=== PATIENT | male | born 1960 | race Caucasian/White ===

== ENCOUNTER → 2017-11-02 | Outpatient (CLI) | payer OTHER ==
[2017-11-02 14:23] LABS: ALT 39 U/L (21-72); AST 26 U/L (17-59); Albumin 3.9 g/dL (3.5-5.0); Alkaline Phosphatase 63 U/L (38-126); Anion Gap 10 mmol/L; Blood Urea Nitrogen 17 mg/dL (9-20); Calcium 9.2 mg/dL (8.4-10.2); Carbon Dioxide 29 mmol/L (22-30); Chloride 102 mmol/L (98-107); Cholesterol 167 mg/dL (<200); Glucose 141 mg/dL (74-99); HDL Cholesterol 39 mg/dL (40-60); LDL Cholesterol,Calculated 104 mg/dL (0-99); Potassium 4.2 mmol/L (3.5-5.1); Sodium 141 mmol/L (137-145); Total Bilirubin 0.4 mg/dL (0.2-1.3); Total Protein 7.1 g/dL (6.3-8.2); Triglycerides 122 mg/dL (<150)
== END | disposition home or self-care (01) ==
LOC: LABWHC1 12:50
PROVIDERS: ATTEND Internal Medicine Endocrinology, Diabetes & Metabolism
DX: E11.65 Type 2 diabetes mellitus with hyperglycemia (principal)
CPT/HCPCS: 36415; 80053; 80061; 82043; 82570

== ENCOUNTER → 2019-05-07 | Outpatient (CLI) | payer OTHER ==
[2019-05-08 00:33] LABS: African American GFR (CKD) 111.7 (60.0-200.0); Albumin 3.9 g/dL (3.80-4.90); Albumin/Globulin Ratio 1.44 (1.60-3.17); BUN/Creat Ratio 16.25 Ratio (12.00-20.00); Calcium 9.2 mg/dL (8.7-10.3); Chol/HDL Ratio 4.14; Globulin 2.7 g/dL (1.6-3.3); LDL Cholesterol,Calculated 66.8 mg/dL (0.0-131.0); Non-African American GFR(CKD) 96.4 (60.0-200.0); Total Bilirubin 0.6 mg/dL (0.2-1.2); Total Protein 6.6 g/dL (6.2-8.2); VLDL Calculation 21.2 mg/dL (5.00-40.00)
[2019-05-08 01:16] LABS: Hemoglobin A1C 10.9 % (4.0-6.0)
== END | disposition home or self-care (01) ==
LOC: LABWHC1 13:53
PROVIDERS: ATTEND Internal Medicine Endocrinology, Diabetes & Metabolism
DX: E11.65 Type 2 diabetes mellitus with hyperglycemia (principal)
CPT/HCPCS: 36415; 80053; 80061; 82043; 82570; 83036; 84443

== ENCOUNTER 2019-05-15 16:54 | Emergency (ER) | payer OTHER ==
[2019-05-15 17:49] VITALS: TEMP 98.9
--- NOTE | 2019-05-15 19:36 | US ---
EXAMINATION TYPE: US venous doppler duplex LE RT DATE OF EXAM: 05/15/2019 7:00 PM COMPARISON: NONE CLINICAL HISTORY: Right calf and thigh pain. Right calf and thigh pain x couple days. No hx of DVT. P atient does not take blood thinners. SIDE PERFORMED: Right TECHNIQUE: The lower extremity deep venous system is examined utilizing real time linear array sonog parisa with graded compression, doppler sonography and color-flow sonography. VESSELS IMAGED: External Iliac Vein (EIV) Common Femoral Vein Deep Femoral Vein Greater Saphenous Vein * Femoral Vein Popliteal Vein Small Saphenous Vein * Proximal Calf Veins (* superficial vessels) Right Leg: No evidence of DVT in veins imaged from prox calf veins to EIV. Scanned area of pain righ t medial calf. No obvious abnormalities seen at this time. Edema visualized right calf. IMPRESSION: No evidence of deep venous thrombosis in the right leg.
--- NOTE | 2019-05-15 20:10 | ED ---
General Adult HPI - General Chief complaint: Extremity Problem,Nontraumatic Stated complaint: sharp pain in leg Time Seen by Provider: 05/15/19 18:04 Source: patient Mode of arrival: wheelchair Limitations: no limitations - History of Present Illness Initial comments: 59-year-old male patient presents to the emergency department today for evaluation of pain to the right calf and thigh. Patient states a few days ago he had a really sharp pain to the left calf. Patient states he has had some soreness to the area since. States that today he developed some pain in his thigh. He is concerned he may have a blood clot. Denies any swelling to the leg. Denies any recent travel or long car rides. Denies any prolonged immobility. Denies history of DVT or recent diagnosis of cancer. Denies any chest pain, shortness of breath, or palpitations. Denies fever or chills per denies any known injury. Patient denies any recent rash, fever, chills, abdo maren pain, nausea, vomiting, diarrhea, constipation, back pain, numbness, tingling, dizziness, weakness, hematuria, dysuria, urinary urgency, urinary frequency, headache, visual changes, or any other complaints. - Related Data Home Medications Medication Instructions Recorded Confirmed Glimepiride [Amaryl] 2 mg PO DAILY 11/15/18 11/15/18 INSULIN LISPRO (humaLOG) [humaLOG] See Protocol SQ AC-BRKFST 11/15/18 11/15/18 Insulin Glargine [Lantus] 10 unit SQ HS 11/15/18 11/15/18 metFORMIN HCL ER [Glucophage Xr] 750 mg PO BID 11/15/18 11/15/18 Allergies Allergy/AdvReac Type Severity Reaction Status Date / Time No Known Allergies Allergy Verified 05/15/19 17:49 Review of Systems ROS Statement: Those systems with pertinent positive or pertinent negative responses have been documented in the HPI. ROS Other: All systems not noted in ROS Statement are negative. Past Medical History Past Medical History: Diabetes Mellitus, Hyperlipidemia, Hypertension History of Any Multi-Drug Resistant Organisms: None Reported Past Surgical History: No Surgical Hx Reported Past Anesthesia/Blood Transfusion Reactions: No Reported Reaction Past Psychological History: No Psychological Hx Reported Smoking Status: Never smoker Past Alcohol Use History: Unable to Obtain, Rare General Exam Limitations: no limitations General appearance: alert, in no apparent distress, other (Physical well- developed, well-nourished adult male patient in no acute distress. Vital signs upon presentation are temperature 98.9F, pulse 81, respirations 20, blood pressure 167/85, pulse ox 95% on room air.) Eye exam: Present: normal appearance, PERRL, EOMI. Absent: scleral icterus, conjunctival injection, periorbital swelling ENT exam: Present: normal exam, normal oropharynx, mucous membranes moist Cardiovascular Exam: Present: regular rate, normal rhythm, normal heart sounds. Absent: systolic murmur, diastolic murmur, rubs, gallop, clicks GI/Abdominal exam: Present: soft, normal bowel sounds. Absent: distended, tenderness, guarding, rebound, rigid Extremities exam: Present: normal inspection, full ROM, tenderness (Mild tenderness over the right medial calf.), normal capillary refill, other (Skin to the right lower extremity is pink, warm, dry. Cap refill less than 3 seconds. Pedal and posttibial pulses 2+ and equal bilaterally.). Absent: pedal edema, joint swelling, calf tenderness Neurological exam: Present: alert, oriented X3, CN II-XII intact Psychiatric exam: Present: normal affect, normal mood Skin exam: Present: warm, dry, intact, normal color. Absent: rash Course Vital Signs 05/15/19 05/15/19 17:46 21:00 Temperature 98.9 F Pulse Rate 81 72 Respiratory 20 18 Rate Blood Pressure 167/85 142/73 O2 Sat by Pulse 95 Oximetry Medical Decision Making - Medical Decision Making 59-year-old male patient presents to the emergency department today for evaluation of calf and thigh pain. Physical examination reveals some mild tenderness but no swelling or skin discoloration. No rash. Neurovascular status is intact. Ultrasound was obtained and shows no evidence for DVT or ot her abnormalities. He does state symptoms have been improved over the last couple of days. Patient will be discharged up with his primary care physician for recheck in 1-2 days. Return parameters were discussed in detail. He verbalizes understanding and agrees with this plan - Radiology Data Radiology results: report reviewed Ultrasound of the right lower extremity is obtained. Report reviewed in its entirety. Impression by Dr. Saldana shows no evidence of DVT in the veins image from the proximal calf veins to the ER IV. Scant area of pain right medial calf. No obvious have normality seen at this time. Edema visualized right calf. Disposition Clinical Impression: Leg pain Disposition: HOME SELF-CARE Condition: Good Instructions (If sedation given, give patient instructions): Leg Pain (ED) Additional Instructions: Take Tylenol Motrin for pain control. Follow up with her primary care physician for recheck in 12 days. Return to the emergency department immediately for any new, worsening, or concerning symptoms. Is patient prescribed a controlled substance at d/c from ED?: No Referrals: Nathanael Valentin MD [Primary Care Provider] - 1-2 days Time of Disposition: 20:10
[2019-05-15 21:25] VITALS: BP 142/73; PULSE 72; RESP 18
== END 2019-05-15 21:00 | disposition home or self-care (01) ==
LOC: EC 16:54
DX: M79.661 Pain in right lower leg (principal); M79.651 Pain in right thigh; E11.9 Type 2 diabetes mellitus without complications; Z79.4 Long term (current) use of insulin
CPT/HCPCS: 99283

== ENCOUNTER → 2019-10-24 | Outpatient (CLI) | payer OTHER ==
--- NOTE | 2019-10-24 16:35 | CONS ---
CONSULTATION DATE OF SERVICE: 10/24/2019 This patient is a 59-year-old gentleman who has been evaluated in the sleep center for possible obstructive sleep apnea-hypopnea syndrome. HISTORY OF PRESENT ILLNESS/SLEEP/WAKE EVALUATION: Patient's usual sleep schedule on weekdays is from 10:30 p.m. until 6:30 a.m. and on weekends from around 11:30 p.m. until 7:30 a.m. Sometimes he has problems with falling asleep. No TV in bedroom. He usually sleeps on the side position. He wakes up from sleep up to 4 times with nocturia and dry mouth. No history of hypnagogic hallucinations, sleep paralysis or cataplexy. Positive history of sleeptalking. In the morning the patient wakes up tired, has difficulties paying attention. White Sleepiness Scale is 7. PAST MEDICAL HISTORY: Past medical history is positive for hypertension and diabetes. PAST SURGICAL HISTORY: Colonoscopy. MEDICATIONS: Diovan, hydrochlorothiazide, metoprolol, metformin, amlodipine, glimepiride, isosorbide, several other medications. Patient does not remember the names. SOCIAL HISTORY: Alcohol consumption occasional. Presently does not smoke. REVIEW OF SYSTEMS: Multiple awakenings from sleep. Episodes of sleepiness during the day. PHYSICAL EXAMINATION: GENERAL: A pleasant gentleman without distress. VITAL SIGNS: Height 6 feet 0 inches, weight 341, body mass index 46.2, oxygen saturation at room air 96%. Blood pressure 123/71, HR 72. HEENT: PERRLA, EOMI. Evaluation of oropharynx showed tongue protrudes midline. Low position of soft palate. NECK: Supple. No JVD. Thyroid is not palpable. Wide neck; 20-1/4 inches in circumference. LUNGS: Clear to percussion and to auscultation. Good air exchange. No wheezing or rhonchi. HEART: S1, S2 regular. No murmurs, gallops or rubs. ABDOMEN: Obese. EXTREMITIES: No clubbing or cyanosis. 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 Cranial nerves 2 to 7 intact. There is no fasciculation or atrophy. noted. No focal deficits observed. IMPRESSION: 1. Snoring, multiple awakenings from sleep with dry mouth and nocturia, wide neck, low position of soft palate; obstructive sleep apnea-hypopnea syndrome. 2. Obesity in morbid range. 3. Hypertension. 4. Diabetes mellitus. PLAN: 1. Polysomnography for evaluation of patient's breathing during sleep. 2. CPAP/BiPAP titration if sleep study confirms obstructive sleep apnea-hypopnea syndrome. 3. Preferable position during sleep on the side. 4. No driving if patient feels any sleepiness. 5. I will see patient for follow up visit to explain results of testing and following plan. Thank you very much for referring this patient for consultation. Sincerely, Gabino Marc MD, PhD, FAASM Diplomat of [employer] Developer of [facility] [place] MMODL / IJN: [id number] /
== END | disposition home or self-care (01) ==
LOC: SLEEP 13:32
PROVIDERS: ATTEND Internal Medicine
DX: G47.33 Obstructive sleep apnea (adult) (pediatric) (principal); E66.01 Morbid (severe) obesity due to excess calories; I10 Essential (primary) hypertension; E11.9 Type 2 diabetes mellitus without complications; R35.1 Nocturia; R68.2 Dry mouth, unspecified; Z68.42 Body mass index [BMI] 45.0-49.9, adult; Z79.84 Long term (current) use of oral hypoglycemic drugs; Z79.899 Other long term (current) drug therapy
CPT/HCPCS: 99211

== ENCOUNTER → 2020-02-26 | Outpatient (CLI) | payer OTHER ==
[2020-02-26 20:11] LABS: African American GFR (CKD) 111.7 (60.0-200.0); Albumin 4.2 g/dL (3.80-4.90); Albumin/Globulin Ratio 1.4 (1.60-3.17); Anion Gap 8.7 mmol/L (4.00-12.00); BUN/Creat Ratio 17.5 Ratio (12.00-20.00); Calcium 9.7 mg/dL (8.7-10.3); Carbon Dioxide 28.3 mmol/L (21.6-31.8); Chol/HDL Ratio 3.81; LDL Cholesterol,Calculated 62.2 mg/dL (0.0-131.0); Non-African American GFR(CKD) 96.4 (60.0-200.0); Potassium 3.9 mmol/L (3.5-5.5); Total Bilirubin 0.5 mg/dL (0.3-1.2); Total Protein 7.2 g/dL (6.2-8.2); VLDL Calculation 24.8 mg/dL (5.00-40.00)
[2020-02-26 21:09] LABS: Hemoglobin A1C 10.7 % (4.0-6.0)
[2020-02-26 21:40] LABS: Urine Creatinine 169.2 mg/dL
== END | disposition home or self-care (01) ==
LOC: LABWHC1 11:48
PROVIDERS: ATTEND Internal Medicine Endocrinology, Diabetes & Metabolism
DX: E11.65 Type 2 diabetes mellitus with hyperglycemia (principal)
CPT/HCPCS: 36415; 80053; 80061; 82043; 82570; 83036; 84443

== ENCOUNTER → 2020-06-04 | Outpatient (CLI) | payer OTHER ==
--- NOTE | 2020-06-04 15:35 | XR ---
EXAMINATION TYPE: XR chest 2V DATE OF EXAM: 06/04/2020 COMPARISON: 01/25/2017 INDICATION: Dyspnea TECHNIQUE: Frontal and lateral views of the chest are obtained. FINDINGS: The heart size is normal. The pulmonary vasculature is normal. The lungs are clear. IMPRESSION: 1. No acute pulmonary process.
--- NOTE | 2020-06-04 16:53 | XR ---
EXAMINATION TYPE: XR thoracic spine complete DATE OF EXAM: 06/04/2020 COMPARISON: HISTORY: Pain, chronic TECHNIQUE: Three-view thoracic spine FINDINGS: There are 12 thoracic type vertebral bodies. Pedicles are intact. Spondylosis is present. D isc heights appear preserved. Vertebral body heights are preserved. There may be rudimentary ribs at T12. IMPRESSION: 1. Mild deep venous degenerative change. No acute osseous abnormality is evident.
--- NOTE | 2020-06-04 16:55 | XR ---
EXAMINATION TYPE: XR lumbosacral spine min 4V DATE OF EXAM: 06/04/2020 COMPARISON: None HISTORY: Pain TECHNIQUE: Five-view lumbar spine FINDINGS: There 5 lumbar-type vertebral bodies. Pedicles are intact. T12 ribs are rudimentary. No spo ndylolytic defects are evident. Mild facet changes are not excluded in the lower lumbar spine. Disc h eights are preserved. Vertebral body heights are preserved. IMPRESSION: 1. No acute osseous abnormality is evident. Early degenerative change may be present.
--- NOTE | 2020-06-04 16:57 | XR ---
EXAMINATION TYPE: XR cervical spine limited DATE OF EXAM: 06/04/2020 COMPARISON: None HISTORY: Dorsalgia TECHNIQUE: 3 views of the cervical spine FINDINGS: Prevertebral space is normal. Disc heights are preserved. Vertebral body heights are preser brock. Posterior spinal lamellar line is intact. Odontoid is unremarkable. IMPRESSION: 1. Normal cervical spine
--- NOTE | 2020-06-05 18:43 | ECHOF ---
Referral Reason:R06.09 Dyspnea MEASUREMENTS -------- HEIGHT: 185.4 cm WEIGHT: 152.0 kg BP: RVIDd: 3.6 cm (< 3.3) IVSd: 1.5 cm (0.6 - 1.1) LVIDd: 4.6 cm (3.9 - 5.3) LVPWd: 1.5 cm (0.6 - 1.1) IVSs: 2.0 cm LVIDs: 3.0 cm LVPWs: 1.6 cm LA Diam: 3.5 cm (2.7 - 3.8) Ao Diam: 4.1 cm (2.0 - 3.7) AV Cusp: 2.4 cm (1.5 - 2.6) MV EXCURSION: 13.694 mm (> 18.000) MV EF SLOPE: 128 mm/s (70 - 150) EPSS: 0.9 cm MV E Ismael: 0.65 m/s MV DecT: 359 ms MV A Ismael: 0.85 m/s MV E/A Ratio: 0.77 RAP: 5.00 mmHg RVSP: 14.58 mmHg FINDINGS -------- Sinus rhythm. This was a technically difficult study with suboptimal views. The left ventricular size is normal. There is moderate concentric left ventricular hypertrophy. O verall left ventricular systolic function is normal with, an EF between 55 - 60 %. The right ventricle is mildly enlarged. The left atrium is normal in size. The right atrial size is normal. 5.0mg of Lumason was utilized for enhancement of images There is mild aortic valve sclerosis. The mitral valve leaflets are mildly thickened. Trace tricuspid regurgitation present. The pulmonic valve was not well visualized. The aortic root is dilated measuring 4.1cm. IVC Not well visulized. There is no pericardial effusion. CONCLUSIONS -------- 1. This was a technically difficult study with suboptimal views. 2. There is moderate concentric left ventricular hypertrophy. 3. Overall left ventricular systolic function is normal with, an EF between 55 - 60 %. 4. The right ventricle is mildly enlarged. 5. 5.0mg of Lumason was utilized for enhancement of images 6. There is mild aortic valve sclerosis. 7. Trace tricuspid regurgitation present. 8. The aortic root is dilated measuring 4.1cm. ADULT PROBATION OFFICER: MAHAD Galvan
== END | disposition home or self-care (01) ==
LOC: RADXRMAIN 12:02
PROVIDERS: ATTEND Family Medicine
DX: I35.8 Other nonrheumatic aortic valve disorders (principal); I77.819 Aortic ectasia, unspecified site; I51.7 Cardiomegaly; M47.814 Spondylosis without myelopathy or radiculopathy, thoracic region; G89.29 Other chronic pain; M54.5 Low back pain; M54.2 Cervicalgia; R06.09 Other forms of dyspnea
CPT/HCPCS: 93306; 72072; 72040; 72110; 71046; Q9950

== ENCOUNTER 2020-07-10 14:55 | Observation (INO) | payer OTHER ==
--- NOTE | 2020-07-10 15:33 | ED ---
General Adult HPI - General Chief complaint: Shortness of Breath Stated complaint: Sent by PCP - Abn Labs Time Seen by Provider: 07/10/20 15:05 Source: patient Mode of arrival: ambulatory Limitations: no limitations - History of Present Illness Initial comments: Patient is a 60-year-old male with past medical history of diabetes, hypertension, hyperlipidemia who presents to the emergency department with chest pain or shortness of breath. Patient has had these symptoms for the past several months. Reports that he has been followed with Dr. Valentin in office. He had a stress test earlier this morning. Received a call on his way home stating that he had an abnormal stress test and needed to come to the emergency room for evaluation. Patient reports to exertional shortness of breath which has gotten progressively worse. Also reports a chest tightness and numbness tingling in his left arm. Currently asymptomatic at this time. Patient reports to a previous history of RI however patient did not find out about this until years later. Denies having stents. No lower extremity swelling at this time. No history of DVT or PE. No calf pain or swelling. Denies fevers, chills or cough. No other alleviating, precipitating or modifying factors - Related Data Home Medications Medication Instructions Recorded Confirmed Glimepiride [Amaryl] 2 mg PO DAILY 11/15/18 07/10/20 Aspirin EC [Ecotrin Low Dose] 81 mg PO DAILY 07/10/20 07/10/20 Atorvastatin [Lipitor] 20 mg PO HS 07/10/20 07/10/20 Empagliflozin [Jardiance] 25 mg PO DAILY 07/10/20 07/10/20 Insulin Glargine,Hum.rec.anlog 35 - 45 unit SQ HS 07/10/20 07/10/20 [Lantus Solostar] Insulin Lispro [humaLOG Kwikpen] See Protocol SQ AC-TID 07/10/20 07/10/20 Isosorbide Mononitrate ER [Imdur] 30 mg PO DAILY 07/10/20 07/10/20 Metoprolol Succinate [Toprol XL] 100 mg PO DAILY 07/10/20 07/10/20 Valsartan/Hydrochlorothiazide 1 tab PO DAILY 07/10/20 07/10/20 [Valsartan-Hctz 160-12.5 mg Tab] amLODIPine [Norvasc] 10 mg PO DAILY 07/10/20 07/10/20 metFORMIN HCL [Glucophage] 850 mg PO BID 07/10/20 07/10/20 Allergies Allergy/AdvReac Type Severity Reaction Status Date / Time No Known Allergies Allergy Verified 07/10/20 16:28 Review of Systems ROS Statement: Those systems with pertinent positive or pertinent negative responses have been documented in the HPI. ROS Other: All systems not noted in ROS Statement are negative. Past Medical History Past Medical History: Diabetes Mellitus, Hyperlipidemia, Hypertension History of Any Multi-Drug Resistant Organisms: None Reported Past Surgical History: No Surgical Hx Reported Past Anesthesia/Blood Transfusion Reactions: No Reported Reaction Past Psychological History: No Psychological Hx Reported Smoking Status: Never smoker Past Alcohol Use History: Rare Past Drug Use History: None Reported General Exam Limitations: no limitations General appearance: alert, in no apparent distress Head exam: Present: atraumatic, normocephalic, normal inspection Eye exam: Present: normal appearance, PERRL, EOMI. Absent: scleral icterus, conjunctival injection, periorbital swelling ENT exam: Present: normal exam, mucous membranes moist Neck exam: Present: normal inspection. Absent: tenderness, meningismus, lymphadenopathy Respiratory exam: Present: normal lung sounds bilaterally. Absent: respiratory distress, wheezes, rales, rhonchi, stridor Cardiovascular Exam: Present: regular rate, normal rhythm, normal heart sounds. Absent: systolic murmur, diastolic murmur, rubs, gallop, clicks GI/Abdominal exam: Present: soft, normal bowel sounds. Absent: distended, tenderness, guarding, rebound, rigid Extremities exam: Present: normal inspection, full ROM, normal capillary refill. Absent: tenderness, pedal edema, joint swelling, calf tenderness Back exam: Present: normal inspection Neurological exam: Present: alert, oriented X3, CN II-XII intact Psychiatric exam: Present: normal affect, normal mood Skin exam: Present: warm, dry, intact, normal color. Absent: rash Course Vital Signs 07/10/20 07/10/20 07/10/20 15:04 15:30 16:30 Temperature 98 F Pulse Rate 81 78 Respiratory 20 16 18 Rate Blood Pressure 119/76 129/64 126/74 O2 Sat by Pulse 97 96 96 Oximetry 07/10/20 07/10/20 17:00 17:30 Temperature Pulse Rate 71 78 Respiratory 18 18 Rate Blood Pressure 112/64 121/75 O2 Sat by Pulse 96 96 Oximetry EKG Findings - EKG Comments: EKG Findings:: EKG demonstrates sinus rhythm with ventricular rate of 80. VA interval 192. QRS 138. QTC of 475. Intraventricular conduction delay. Right bundle branch block with a left anterior fascicular block. No acute ST segment elevations. No old EKG for comparison Medical Decision Making - Medical Decision Making Upon arrival patient was placed into room 5. A thorough history and physical exam was performed. Patient hooked up to continuous pulse ox and cardiac monitoring. 12-lead EKG was performed. No old to compare to. Laboratory studies were conducted and the patient went for chest x-ray. Laboratory studies are reviewed and troponin is negative. Chest x-ray demonstrates no acute cardio pondering process. Results are discussed the patient. Because of this abnormal stress test I did recommend admission for which the patient did agree to. So with Duong from Dr. Valentin's office who agreed to admit the patient. I will place cardiology consultation. Troponins will be trended. Patient remained in stable condition awaiting a bed on the floor - Lab Data Result diagrams: 07/11/20 05:30 07/11/20 05:30 Lab Results 07/10/20 07/10/20 07/10/20 Range/Units 15:35 15:35 15:35 WBC 10.7 H (3.8-10.6) k/uL RBC 4.84 (4.30-5.90) m/uL Hgb 14.6 (13.0-17.5) gm/dL Hct 43.1 (39.0-53.0) % MCV 89.0 (80.0-100.0) fL MCH 30.2 (25.0-35.0) pg MCHC 33.9 (31.0-37.0) g/dL RDW 13.7 (11.5-15.5) % Plt Count 283 (150-450) k/uL MPV 6.5 Neutrophils % 72 % Lymphocytes % 20 % Monocytes % 4 % Eosinophils % 3 % Basophils % 1 % Neutrophils # 7.7 (1.3-7.7) k/uL Lymphocytes # 2.2 (1.0-4.8) k/uL Monocytes # 0.4 (0-1.0) k/uL Eosinophils # 0.3 (0-0.7) k/uL Basophils # 0.1 (0-0.2) k/uL PT 10.3 (9.0-12.0) sec INR 1.0 (<1.2) APTT 22.3 (22.0-30.0) sec Sodium 139 (137-145) mmol/L Potassium 3.8 (3.5-5.1) mmol/L Chloride 105 (98-107) mmol/L Carbon Dioxide 24 (22-30) mmol/L Anion Gap 10 mmol/L BUN 19 (9-20) mg/dL Creatinine 0.68 (0.66-1.25) mg/dL Est GFR (CKD-EPI)AfAm >90 (>60 ml/min/1.73 sqM) Est GFR (CKD-EPI)NonAf >90 (>60 ml/min/1.73 sqM) Glucose 209 H (74-99) mg/dL Calcium 9.3 (8.4-10.2) mg/dL Magnesium 1.8 (1.6-2.3) mg/dL Total Bilirubin 0.5 (0.2-1.3) mg/dL AST 34 (17-59) U/L ALT 36 (4-49) U/L Alkaline Phosphatase 67 (38-126) U/L Troponin I (0.000-0.034) ng/mL NT-Pro-B Natriuret Pep pg/mL Total Protein 7.5 (6.3-8.2) g/dL Albumin 4.1 (3.5-5.0) g/dL 07/10/20 07/10/20 Range/Units 15:35 15:35 WBC (3.8-10.6) k/uL RBC (4.30-5.90) m/uL Hgb (13.0-17.5) gm/dL Hct (39.0-53.0) % MCV (80.0-100.0) fL MCH (25.0-35.0) pg MCHC (31.0-37.0) g/dL RDW (11.5-15.5) % Plt Count (150-450) k/uL MPV Neutrophils % % Lymphocytes % % Monocytes % % Eosinophils % % Basophils % % Neutrophils # (1.3-7.7) k/uL Lymphocytes # (1.0-4.8) k/uL Monocytes # (0-1.0) k/uL Eosinophils # (0-0.7) k/uL Basophils # (0-0.2) k/uL PT (9.0-12.0) sec INR (<1.2) APTT (22.0-30.0) sec Sodium (137-145) mmol/L Potassium (3.5-5.1) mmol/L Chloride (98-107) mmol/L Carbon Dioxide (22-30) mmol/L Anion Gap mmol/L BUN (9-20) mg/dL Creatinine (0.66-1.25) mg/dL Est GFR (CKD-EPI)AfAm (>60 ml/min/1.73 sqM) Est GFR (CKD-EPI)NonAf (>60 ml/min/1.73 sqM) Glucose (74-99) mg/dL Calcium (8.4-10.2) mg/dL Magnesium (1.6-2.3) mg/dL Total Bilirubin (0.2-1.3) mg/dL AST (17-59) U/L ALT (4-49) U/L Alkaline Phosphatase (38-126) U/L Troponin I <0.012 (0.000-0.034) ng/mL NT-Pro-B Natriuret Pep 32 pg/mL Total Protein (6.3-8.2) g/dL Albumin (3.5-5.0) g/dL Disposition Clinical Impression: Chest pain, Exertional dyspnea, Abnormal stress ECG Disposition: ADMITTED IP TO THIS [facility] Condition: Stable Is patient prescribed a controlled substance at d/c from ED?: No Decision to Admit Reason: Admit from EC Decision Date: 07/10/20 Decision Time: 16:37
[2020-07-10 15:42] LABS: Basophils # (A) 0.1 k/uL (0-0.2); Basophils % (A) 1 %; Eosinophils # (A) 0.3 k/uL (0-0.7); Eosinophils % (A) 3 %; HCT 43.1 % (39.0-53.0); HGB 14.6 gm/dL (13.0-17.5); Lymphocytes # (A) 2.2 k/uL (1.0-4.8); Lymphocytes % (A) 20 %; MCH 30.2 pg (25.0-35.0); MCHC 33.9 g/dL (31.0-37.0); Mean Platelet Volume 6.5; Monocytes # (A) 0.4 k/uL (0-1.0); Monocytes % (A) 4 %; Neutrophils # (A) 7.7 k/uL (1.3-7.7); Neutrophils % (A) 72 %; Platelet Count 283 k/uL (150-450); RBC 4.84 m/uL (4.30-5.90); RDW 13.7 % (11.5-15.5); WBC 10.7 k/uL (3.8-10.6)
[2020-07-10 16:01] LABS: ALT 36 U/L (4-49); AST 34 U/L (17-59); African American GFR (CKD) >90 (>60 ml/min/1.73 sqM); Albumin 4.1 g/dL (3.5-5.0); Alkaline Phosphatase 67 U/L (38-126); Anion Gap 10 mmol/L; Blood Urea Nitrogen 19 mg/dL (9-20); Calcium 9.3 mg/dL (8.4-10.2); Carbon Dioxide 24 mmol/L (22-30); Chloride 105 mmol/L (98-107); Glucose 209 mg/dL (74-99); Magnesium 1.8 mg/dL (1.6-2.3); Non-African American GFR(CKD) >90 (>60 ml/min/1.73 sqM); Potassium 3.8 mmol/L (3.5-5.1); Sodium 139 mmol/L (137-145); Total Bilirubin 0.5 mg/dL (0.2-1.3); Total Protein 7.5 g/dL (6.3-8.2)
[2020-07-10 16:07] LABS: Partial Thromboplastin Time 22.3 sec (22.0-30.0); Prothrombin Time 10.3 sec (9.0-12.0)
--- NOTE | 2020-07-10 16:19 | XR ---
EXAMINATION TYPE: XR chest 2V DATE OF EXAM: 07/10/2020 COMPARISON: Chest x-ray 06/04/2020 HISTORY: Chest pain TECHNIQUE: Frontal and lateral views of the chest are obtained on 3 images. FINDINGS: There is no focal air space opacity, pleural effusion, or pneumothorax seen. The cardiac silhouette size is within normal limits. There are overlying leads. Patient is rotated. The osseous structures are intact. IMPRESSION: No acute cardiopulmonary process.
[2020-07-10] MEDS ORDERED: NALOXONE 0.4 MG/ML 1 ML VIAL IV PRN (16:37)
[2020-07-10] MEDS ORDERED: HEPARIN SODIUM,PORCINE 5,000 UNIT/ML 1 ML VIAL IV PRN (16:40)
[2020-07-10] MEDS ORDERED: HEPARIN SOD,PORK IN 0.45% NACL 25,000 UNIT in 0.45% NACL 1 250ML.BAG IV SCH (16:45)
[2020-07-10 17:21] LABS: Glucose,Whole Blood 180 mg/dL (75-99)
[2020-07-10 20:11] LABS: Glucose,Whole Blood 259 mg/dL (75-99)
[2020-07-10] MEDS ORDERED: INSULIN DETEMIR (LEVEMIR) 100 UNIT/ML SYR SQ SCH (21:00)
[2020-07-11 06:25] LABS: African American GFR (CKD) >90 (>60 ml/min/1.73 sqM); Anion Gap 9 mmol/L; Blood Urea Nitrogen 18 mg/dL (9-20); Calcium 8.8 mg/dL (8.4-10.2); Carbon Dioxide 23 mmol/L (22-30); Chloride 106 mmol/L (98-107); Glucose 197 mg/dL (74-99); Magnesium 1.9 mg/dL (1.6-2.3); Non-African American GFR(CKD) >90 (>60 ml/min/1.73 sqM); Potassium 3.8 mmol/L (3.5-5.1); Sodium 138 mmol/L (137-145)
[2020-07-11 06:32] LABS: INR 0.9 (<1.2); Partial Thromboplastin Time 26.3 sec (22.0-30.0); Prothrombin Time 10.1 sec (9.0-12.0)
[2020-07-11 07:19] LABS: Glucose,Whole Blood 183 mg/dL (75-99)
[2020-07-11 08:25] VITALS: TEMP 97.7
[2020-07-11] MEDS: INSULIN ASPART (NovoLOG) 100 UNIT/ML VIAL SQ SCH ×3 (08:26→18:14)
[2020-07-11 08:50] LABS: Basophils # (A) 0.05 X 10*3/uL (0.00-0.10); Basophils % (A) 0.6 %; Eosinophils # (A) 0.23 X 10*3/uL (0.04-0.35); Eosinophils % (A) 2.7 %; HCT 42.1 % (39.6-50.0); HGB 13.8 g/dL (13.0-17.0); Lymphocytes % (A) 30.7 %; MCH 30.2 pg (27.0-32.0); MCHC 32.8 g/dL (32.0-37.0); MCV 92.1 fL (80.0-97.0); Mean Platelet Volume 9.3 fL (9.5-12.2); Monocytes # (A) 0.63 X 10*3/uL (0.20-1.00); Monocytes % (A) 7.4 %; Neutrophils # (A) 4.89 X 10*3/uL (1.80-7.70); Neutrophils % (A) 57.7 %; Platelet Count 250 X 10*3/uL (140-440); RBC 4.57 X 10*6/uL (4.40-5.60); RDW 13.8 % (11.5-14.5); WBC 8.48 X 10*3/uL (4.50-10.00)
[2020-07-11] MEDS ORDERED: ASPIRIN 81 MG PO SCH (09:00)
[2020-07-11] MEDS ORDERED: hydroCHLOROthiazide 12.5 MG CAP PO SCH (09:00)
[2020-07-11] MEDS ORDERED: METOPROLOL SUCCINATE (ER) 100 MG TAB.ER.24H PO SCH (09:00)
[2020-07-11] MEDS ORDERED: amLODIPine 10 MG TAB PO SCH (09:00)
[2020-07-11] MEDS ORDERED: VALSARTAN 160 MG TAB PO SCH (09:00)
[2020-07-11] MEDS ORDERED: ISOSORBIDE MONONITRATE ER 30 MG TAB.ER.24H PO SCH (09:00)
[2020-07-11] MEDS ORDERED: ALPRAZolam 0.5 MG TAB PO PRN (10:05)
[2020-07-11] MEDS ORDERED: ASPIRIN 325 MG TAB PO STA (10:05)
[2020-07-11] MEDS ORDERED: SODIUM CHLORIDE 0.9% 1,000 ML in EMPTY BAG 1 BAG IV ONE (10:05)
[2020-07-11] MEDS ORDERED: ALPRAZolam 0.25 MG TAB PO PRN (10:05)
[2020-07-11] MEDS ORDERED: NITROGLYCERIN SL TABS 0.4 MG TAB SUBLINGUAL PRN (10:05)
[2020-07-11] MEDS ORDERED: ATORVASTATIN 80 MG TAB PO STA (10:05)
[2020-07-11 11:05] LABS: Glucose,Whole Blood 158 mg/dL (75-99)
--- NOTE | 2020-07-11 11:11 | P.CRDCN ---
History of Present Illness Consult date: 07/11/20 History of present illness: HISTORY OF PRESENT ILLNESS: This is a 60-year-old male with a past medical history significant for diabetes mellitus, hypertension, hyperlipidemia, obesity, and family history of cardiac disease. Patient does not follow with a medical records secretary. We have been asked to see the patient in consultation for abnormal stress test. Patient examined at the bedside. Patient states he has been having shortness of breath for the last couple months with intermittent left-sided chest pain. He saw his primary care physician, Dr. Valentin, who ordered a stress test. The patient underwent outpatient Lexiscan stress test on 07/10/2020. The patient reports he received a phone call from his primary care physician that his stress test was abnormal and he needed to come to the emergency room. At the time of examination this morning, the patient denies any chest pain or pressure. He denies any shortness of breath. EKG reveals sinus rhythm. Right bundle branch block. Left anterior fascicular block. Bifascicular block. Chest xray negative for acute process. Laboratory data: WBC 8.4, Hemoglobin 13.8, Platelet count 250, Sodium 138, Potassium 3.8, BUN 18, Creatinine 0.68, Troponin negative 3 Current home cardiac medications include Lipitor 20 mg daily, valsartan-hctz 61344.5 mg daily, metoprolol succinate 100 mg daily, Imdur 39 g daily, amlodipine 10 mg daily, aspirin 81 mg daily Most recent echocardiogram obtained in May 2020 reveals ejection fraction 55-60%. Lexiscan stress test performed on 07/10/2020 revealed acute ischemia anterior septal wall in LAD distribution mid to apical segment REVIEW OF SYSTEMS: At the time of my exam: CONSTITUTIONAL: Denies fever or chills. HEENT: Denies blurred vision, vision changes, or eye pain. Denies hemoptysis CARDIOVASCULAR: Denies chest pain. Denies orthopnea. Denies PND. Denies palpitations RESPIRATORY: Denies shortness of breath. GASTROINTESTINAL: Denies abdominal pain. Denies nausea or vomiting. HEMATOLOGIC: Denies bleeding disorders. GENITOURINARY: Denies any blood in urine. SKIN: Denies pruitis. Denies rash. PHYSICAL EXAM: VITAL SIGNS: Reviewed. GENERAL: Well-developed in no acute distress. HEENT: Head is normocephalic. Pupils are equal, round. Sclerae anicteric. Mucous membranes of the mouth are moist. Neck supple. No JVD or thyromegaly LUNGS: Respirations even and unlabored. Lungs essentially clear to auscultation bilaterally. HEART: Regular rate and rhythm. S1 and S2 heard. ABDOMEN: Soft. Nondistended. Nontender. EXTREMITIES: Normal range of motion. No clubbing or cyanosis. Peripheral pulses intact. No lower extremity edema NEUROLOGIC: Awake and alert. Oriented x 3. ASSESSMENT: Abnormal stress test revealing acute ischemia anterior septal wall in LAD d istribution mid to apical segment Shortness of breath and intermittent chest pain 2-3 months Hypertension Hyperlipidemia Diabetes mellitus Obesity: BMI 43.5 PLAN: Resume home cardiac medications Patient to undergo cardiac catheterization today with Dr. Lock Nurse practitioner note has been reviewed by physician. Signing provider agrees with the documented findings, assessment, and plan of care. Past Medical History Past Medical History: Diabetes Mellitus, Hyperlipidemia, Hypertension History of Any Multi-Drug Resistant Organisms: None Reported Past Surgical History: No Surgical Hx Reported Past Anesthesia/Blood Transfusion Reactions: No Reported Reaction Past Psychological History: No Psychological Hx Reported Smoking Status: Never smoker Past Alcohol Use History: Rare Past Drug Use History: None Reported Medications and Allergies Home Medications Medication Instructions Recorded Confirmed Type Glimepiride [Amaryl] 2 mg PO DAILY 11/15/18 07/10/20 History Aspirin EC [Ecotrin Low Dose] 81 mg PO DAILY 07/10/20 07/10/20 History Atorvastatin [Lipitor] 20 mg PO HS 07/10/20 07/10/20 History Empagliflozin [Jardiance] 25 mg PO DAILY 07/10/20 07/10/20 History Insulin Glargine,Hum.rec.anlog 35 - 45 unit SQ 07/10/20 07/10/20 History [Lantus Solostar] Insulin Lispro [humaLOG Kwikpen] See Protocol SQ AC-TID 07/10/20 07/10/20 History Isosorbide Mononitrate ER [Imdur] 30 mg PO DAILY 07/10/20 07/10/20 History Metoprolol Succinate [Toprol XL] 100 mg PO DAILY 07/10/20 07/10/20 History Valsartan/Hydrochlorothiazide 1 tab PO DAILY 07/10/20 07/10/20 History [Valsartan-Hctz 160-12.5 mg Tab] amLODIPine [Norvasc] 10 mg PO DAILY 07/10/20 07/10/20 History metFORMIN HCL [Glucophage] 850 mg PO BID 07/10/20 07/10/20 History Allergies Allergy/AdvReac Type Severity Reaction Status Date / Time No Known Allergies Allergy Verified 07/10/20 16:28 Physical Exam Vitals: Vital Signs Temp Pulse Pulse Resp BP BP Pulse Ox 07/11/20 08:25 97.7 F 67 18 137/83 98 07/11/20 02:00 97.6 F 67 15 120/75 94 L 07/10/20 20:01 97.8 F 70 17 130/78 97 07/10/20 17:54 98.4 F 50 L 18 165/87 97 07/10/20 17:30 78 18 121/75 96 07/10/20 17:00 71 18 112/64 96 07/10/20 16:30 18 126/74 96 07/10/20 15:30 78 16 129/64 96 07/10/20 15:04 98 F 81 20 119/76 97 Intake and Output 07/10/20 07/11/20 07/11/20 22:59 06:59 14:59 Intake Total 60.994 132.825 Balance 60.994 132.825 Intake: Intake, IV Titration 60.994 132.825 Amount Heparin Sod,Pork in 0.45% 60.994 132.825 NaCl 25,000 unit In 0.45 % NaCl 1 250ml.bag @ 6.68 UNITS/KG/HR 9.999 mls/hr IV .Q24H [facility] Rx#: [id number] Other: Voiding Method Toilet # Voids 1 2 Weight 149.685 kg Results 07/11/20 05:30 07/11/20 05:30 Cardiac Enzymes 07/10/20 07/10/20 07/10/20 Range/Units 15:35 15:35 18:06 AST 34 (17-59) U/L Troponin I <0.012 <0.012 (0.000-0.034) ng/mL 07/10/20 Range/Units 22:03 AST (17-59) U/L Troponin I <0.012 (0.000-0.034) ng/mL Coagulation 07/10/20 07/10/20 07/11/20 Range/Units 15:35 22:03 05:30 PT 10.3 10.1 (9.0-12.0) sec APTT 22.3 23.7 26.3 (22.0-30.0) sec CBC 07/10/20 07/11/20 Range/Units 15:35 05:30 WBC 10.7 H 8.48 (3.8-10.6) k/uL RBC 4.84 4.57 (4.30-5.90) m/uL Hgb 14.6 13.8 (13.0-17.5) gm/dL Hct 43.1 42.1 (39.0-53.0) % Plt Count 283 250 (150-450) k/uL Comprehensive Metabolic Panel 07/10/20 07/11/20 Range/Units 15:35 05:30 Sodium 139 138 (137-145) mmol/L Potassium 3.8 3.8 (3.5-5.1) mmol/L Chloride 105 106 (98-107) mmol/L Carbon Dioxide 24 23 (22-30) mmol/L BUN 19 18 (9-20) mg/dL Creatinine 0.68 0.68 (0.66-1.25) mg/dL Glucose 209 H 197 H (74-99) mg/dL Calcium 9.3 8.8 (8.4-10.2) mg/dL AST 34 (17-59) U/L ALT 36 (4-49) U/L Alkaline Phosphatase 67 (38-126) U/L Total Protein 7.5 (6.3-8.2) g/dL Albumin 4.1 (3.5-5.0) g/dL Current Medications Generic Name Dose Route Start Last Admin Trade Name Freq PRN Reason Stop Dose Admin Alprazolam 0.25 mg 07/11/20 10:05 Alprazolam 0.25 Mg Tab PO Q6HR PRN Mild Anxiety Alprazolam 0.5 mg 07/11/20 10:05 Alprazolam 0.5 Mg Tab PO Q6HR PRN Moderate Anxiety Amlodipine Besylate 10 mg 07/11/20 09:00 07/11/20 08:17 Amlodipine 10 Mg Tab PO 10 mg DAILY [facility] Administration Aspirin 81 mg 07/11/20 09:00 07/11/20 08:17 Aspirin 81 Mg PO 81 mg DAILY [facility] Administration Atorvastatin Calcium 20 mg 07/11/20 21:00 Atorvastatin 20 Mg Tab PO HS [facility] Heparin Sodium (Porcine) 0 unit 07/10/20 16:40 07/10/20 23:15 Heparin Sodium,Porcine 5,000 Unit/Ml 1 Ml Vial IV 4,000 unit PER PROTOCOL PRN Administration Low PTT Protocol Hydrochlorothiazide 12.5 mg 07/11/20 09:00 07/11/20 08:16 Hydrochlorothiazide 12.5 Mg Cap PO 12.5 mg DAILY [facility] Administration Heparin Sodium/Sodium Chloride 250 mls @ 9.999 mls/hr 07/10/20 16:45 07/11/20 08:20 25,000 unit/ Sodium Chloride IV 12.68 units/kg/hr .Q24H [facility] 18.98 mls/hr Titration Protocol 6.68 UNITS/KG/HR Sodium Chloride 1,000 ml/ IV 1,000 mls @ 149.685 mls/hr 07/11/20 10:05 Solution IV 07/11/20 16:45 .Q6H41M ONE 1 ML/KG/HR Heparin Sodium (Porcine) 10, 1,001 mls @ 999 mls/hr 07/12/20 07:00 000 unit/ Sodium Chloride IRRIGATION 07/12/20 23:00 ONCE PRN INTRA-OP Heparin Sodium (Porcine) 2,500 250.5 mls @ 250 mls/hr 07/12/20 07:00 unit/ Sodium Chloride IRRIGATION 07/12/20 23:00 ONCE PRN INTRA-OP Insulin Aspart 0 unit 07/11/20 07:30 07/11/20 08:26 Insulin Aspart (Novolog) 100 Unit/Ml Vial SQ Not Given ACHS [facility] Protocol Insulin Detemir 35 unit 07/10/20 21:00 07/10/20 20:39 Insulin Detemir (Levemir) 100 Unit/Ml Syr SQ 35 unit HS [facility] Administration Isosorbide Mononitrate 30 mg 07/11/20 09:00 07/11/20 08:16 Isosorbide Mononitrate Er 30 Mg Tab.Er.24h PO 30 mg DAILY [facility] Administration Metoprolol Succinate 100 mg 07/11/20 09:00 07/11/20 08:17 Metoprolol Succinate (Er) 100 Mg Tab.Er.24h PO 100 mg DAILY [facility] Administration Naloxone HCl 0.2 mg 07/10/20 16:37 Naloxone 0.4 Mg/Ml 1 Ml Vial IV Q2M PRN Opioid Reversal Nitroglycerin 0.4 mg 07/11/20 10:05 Nitroglycerin Sl Tabs 0.4 Mg Tab SUBLINGUAL Q5M PRN Chest Pain Empagliflozin [ 25 mg 07/11/20 09:00 07/11/20 09:05 Jardiance] 25 Mg PO Not Given Tablet DAILY [facility] Valsartan 160 mg 07/11/20 09:00 07/11/20 08:17 Valsartan 160 Mg Tab PO 160 mg DAILY [facility] Administration Intake and Output 07/10/20 07/11/20 07/11/20 22:59 06:59 14:59 Intake Total 60.994 132.825 Balance 60.994 132.825 Intake: Intake, IV Titration 60.994 132.825 Amount Heparin Sod,Pork in 0.45% 60.994 132.825 NaCl 25,000 unit In 0.45 % NaCl 1 250ml.bag @ 6.68 UNITS/KG/HR 9.999 mls/hr IV .Q24H [facility] Rx#: [id number] Other: Voiding Method Toilet # Voids 1 2 Weight 149.685 kg 07/11/20 05:30 07/11/20 05:30
[2020-07-11] MEDS ORDERED: fentaNYL (PF) 50 MCG/ML 2 ML AMP ONE (11:37)
[2020-07-11] MEDS ORDERED: LIDOCAINE 1% INJ 10MG/ML (20 ML MDV) ONE (11:38)
[2020-07-11] MEDS ORDERED: VERAPAMIL 2.5 MG/ML 2 ML AMP ONE (11:38)
[2020-07-11] MEDS ORDERED: MIDAZOLAM 2 MG/2 ML VIAL IV ONE (11:40)
[2020-07-11] MEDS ORDERED: fentaNYL (PF) 50 MCG/ML 2 ML AMP IV ONE (11:40)
[2020-07-11] MEDS ORDERED: LIDOCAINE 1% INJ 10MG/ML (20 ML MDV) SQ ONE (11:42)
[2020-07-11] MEDS ORDERED: HEPARIN SODIUM 1,000 UN/ML (10ML VL) ONE (11:43)
[2020-07-11] MEDS ORDERED: VERAPAMIL SYRINGE (5 MG/10 ML) INTRAARTER ONE (11:44)
[2020-07-11] MEDS ORDERED: HEPARIN SODIUM 1,000 UN/ML (10ML VL) IV ONE (11:45)
[2020-07-11] MEDS ORDERED: IV FLUID CONTINUATION 900 ML IV ONE (11:52)
[2020-07-11] MEDS ORDERED: IOPAMIDOL-370 125ML BTL INJ ONE (11:53)
[2020-07-11] MEDS ORDERED: RX INFO: IV CONTRAST WAS GIVEN 1 EACH MISC MISCELLANE PRN (11:55)
[2020-07-11] MEDS ORDERED: SODIUM CHLORIDE 0.9% 1,000 ML IV SCH (12:00)
--- NOTE | 2020-07-11 12:00 | P.CARDCATH ---
Date of Procedure: 07/11/20 Operative Findings: CARDIAC CATHETERIZATION PERFORMING PHYSICIAN: Ron Lock MD, RPVI PROCEDURE PERFORMED: 1. Selective right and left coronary angiogram 2. Left heart catheterization INDICATION: Chest discomfort in this 60-year-old gentleman with hypertension and dyslipidemia and abnormal myocardial perfusion imaging stress test COMPLICATION: None APPROACH: Right radial artery LEVEL OF SEDATION: Moderate with a sedation length of 12 minutes PROCEDURE DESCRIPTION: After obtaining an informed consent, the patient was brought to cardiac laborer beam house. Local anesthesia was performed using lidocaine subcutaneously. The right radial artery was cannulated using Seldinger technique, the guidewire passed easily, following that we advanced a 5-Argentine sheath dilator assembly, the wire and dilator were removed and sheath was flushed. Following that, 2 mg of verapamil along with 95339 unit heparin were given. Selective right and left coronary angiogram using a 6-Argentine JR4 and JL 3.5 catheters. Following that we did left heart catheterization using 6-Argentine pigtail catheter. The procedure was completed there was no complication. SELECTIVE CORONARY ANGIOGRAM: The right coronary artery: Is a large caliber vessel and a dominant vessel and appears to be angiographically normal. Distally bifurcates into PDA and PLV branches and both appeared to be angiographically normal Left main: Is angiographically normal. Bifurcates into left circumflex, and left anterior descending artery The left circumflex: Is a large caliber vessel and nondominant vessel. It does have mild disease only. Gives rises into the first and second obtuse marginal branches and both appeared to be angiographically normal. The left anterior descending artery: Is a large caliber vessel. The LAD has mild disease only. Gives rises into the first and second diagonal branches and both appeared to have mild disease only. HEMODYNAMICS: The LVEDP was about 10-12 mmHg without significant gradient across aortic valve CONCLUSION: Mild nonobstructive coronary artery disease POSTPROCEDURE MANAGEMENT: Medical treatment
--- NOTE | 2020-07-11 12:57 | P.HPIM ---
History of Present Illness H&P Date: 07/11/20 (37) Chief Complaint: Dyspnea on exertion, chest discomfort 60-year-old male was admitted to the hospital, due to exertional shortness of breath, intermittent chest discomfort, and abnormal stress test. Patient had extensive diagnostic workup in emergency department, no acute EKG changes, troponins was negative, and no acute changes on chest x-ray. EKG reveals sinus rhythm with the right bundle branch block, left anterior fascicular block. Patient evaluate this a.m. resting comfortably in bed, patient denies chest pain, denies shortness of breath, or associated symptoms. Review of Systems Cardiovascular: Reports dyspnea on exertion Past Medical History Past Medical History: Diabetes Mellitus, Hyperlipidemia, Hypertension History of Any Multi-Drug Resistant Organisms: None Reported Past Surgical History: No Surgical Hx Reported Past Anesthesia/Blood Transfusion Reactions: No Reported Reaction Past Psychological History: No Psychological Hx Reported Smoking Status: Never smoker Past Alcohol Use History: Rare Past Drug Use History: None Reported Medications and Allergies Home Medications and Allergies Comment(s): Medications and allergies reviewed Home Medications Medication Instructions Recorded Confirmed Type Glimepiride [Amaryl] 2 mg PO DAILY 11/15/18 07/10/20 History Aspirin EC [Ecotrin Low Dose] 81 mg PO DAILY 07/10/20 07/10/20 History Atorvastatin [Lipitor] 20 mg PO HS 07/10/20 07/10/20 History Empagliflozin [Jardiance] 25 mg PO DAILY 07/10/20 07/10/20 History Insulin Glargine,Hum.rec.anlog 35 - 45 unit SQ HS 07/10/20 07/10/20 History [Lantus Solostar] Insulin Lispro [humaLOG Kwikpen] See Protocol SQ AC-TID 07/10/20 07/10/20 History Isosorbide Mononitrate ER [Imdur] 30 mg PO DAILY 07/10/20 07/10/20 History Metoprolol Succinate [Toprol XL] 100 mg PO DAILY 07/10/20 07/10/20 History Valsartan/Hydrochlorothiazide 1 tab PO DAILY 07/10/20 07/10/20 History [Valsartan-Hctz 160-12.5 mg Tab] amLODIPine [Norvasc] 10 mg PO DAILY 07/10/20 07/10/20 History metFORMIN HCL [Glucophage] 850 mg PO BID 07/10/20 07/10/20 History Allergies Allergy/AdvReac Type Severity Reaction Status Date / Time No Known Allergies Allergy Verified 07/10/20 16:28 Physical Exam Vitals: Vital Signs Temp Pulse Pulse Resp BP BP Pulse Ox 07/11/20 08:25 97.7 F 67 18 137/83 98 07/11/20 08:00 18 07/11/20 02:00 97.6 F 67 15 120/75 94 L 07/10/20 20:01 97.8 F 70 17 130/78 97 07/10/20 17:54 98.4 F 50 L 18 165/87 97 07/10/20 17:30 78 18 121/75 96 07/10/20 17:00 71 18 112/64 96 07/10/20 16:30 18 126/74 96 07/10/20 15:30 78 16 129/64 96 07/10/20 15:04 98 F 81 20 119/76 97 Intake and Output 07/10/20 07/11/20 07/11/20 22:59 06:59 14:59 Intake Total 60.994 232.825 Balance 60.994 232.825 Intake: IV 100 Intake, IV Titration 60.994 132.825 Amount Heparin Sod,Pork in 0.45% 60.994 132.825 NaCl 25,000 unit In 0.45 % NaCl 1 250ml.bag @ 6.68 UNITS/KG/HR 9.999 mls/hr IV .Q24H [facility] Rx#: [id number] Other: Voiding Method Toilet Toilet # Voids 1 2 Weight 149.685 kg - Constitutional General appearance: obese - EENT Eyes: EOMI, PERRLA ENT: normal oropharynx Ears: bilateral: normal - Neck Neck: normal ROM Carotids: bilateral: upstroke normal Thyroid: bilateral: normal size - Respiratory Respiratory: bilateral: CTA - Cardiovascular Normal sinus rhythm pattern Heart rate: 78 Rhythm: regular Heart sounds: normal: S1, S2 radial pulse Peripheral Pulses: bilateral: Normal dorsalis pedis Peripheral Pulses: bilateral: Normal - Gastrointestinal General gastrointestinal: normal bowel sounds - Integumentary Integumentary: normal - Neurologic Neurologic: CNII-XII intact - Musculoskeletal Musculoskeletal: gait normal - Psychiatric Psychiatric: A&O x's 3, appropriate affect, intact judgment & insight Results CBC & Chem 7: 07/11/20 05:30 07/11/20 05:30 Labs: Abnormal Lab Results - Last 24 Hours (Table) 07/10/20 07/10/20 07/10/20 Range/Units 15:35 15:35 17:20 WBC 10.7 H (3.8-10.6) k/uL MPV (9.5-12.2) fL Immature Gran # (0.00-0.04) X 10*3/uL Glucose 209 H (74-99) mg/dL POC Glucose (mg/dL) 180 H (75-99) mg/dL 07/10/20 07/11/20 07/11/20 Range/Units 20:06 05:30 05:30 WBC (3.8-10.6) k/uL MPV 9.3 L (9.5-12.2) fL Immature Gran # 0.08 H (0.00-0.04) X 10*3/uL Glucose 197 H (74-99) mg/dL POC Glucose (mg/dL) 259 H (75-99) mg/dL 07/11/20 07/11/20 Range/Units 07:18 11:04 WBC (3.8-10.6) k/uL MPV (9.5-12.2) fL Immature Gran # (0.00-0.04) X 10*3/uL Glucose (74-99) mg/dL POC Glucose (mg/dL) 183 H 158 H (75-99) mg/dL Chest x-ray: report reviewed Thrombosis Risk Factor Assmnt - Choose All That Apply Other Risk Factors: No Each Risk Factor Represents 2 Points: Age 61-74 years Thrombosis Risk Factor Assessment Total Risk Factor Score: 2 Thrombosis Risk Factor Assessment Level: Low Risk Assessment and Plan Assessment: Abnormal stress test revealing acute ischemia to the interceptor wall in the LAD distribution to the apical segment exertional shortness of breath intermittent chest pain hypertension hyperlipidemia diabetes mellitus type II obesity with BMI 43.5 Plan: Abnormal stress tests with associated shortness of breath with exertion and intermittent chest pain-continue heparin drip for anticoagulation therapy, consult cardiology for possible cardiac catheterization, hypertension- continue home medications, IV hydralazine for blood pressures greater than 170/90 as needed hyperlipidemia continue statin therapy diabetes mellitus type two-continue oral medications with additional sliding scale continue to monitor vital signs and laboratory diagnostic testing continue medical management Time with Patient: Greater than 30
[2020-07-11] MEDS ORDERED: HYDROcodone/APAP 5-325MG 1 EACH TAB PO PRN (16:22)
[2020-07-11] MEDS ORDERED: ACETAMINOPHEN TAB 325 MG TAB PO PRN (17:02)
[2020-07-11 17:20] VITALS: BP 130/67; PULSE 67; RESP 18
[2020-07-11 17:31] LABS: Glucose,Whole Blood 211 mg/dL (75-99)
[2020-07-11] MEDS ORDERED: ATORVASTATIN 20 MG TAB PO SCH (21:00)
--- NOTE | 2020-07-11 22:48 | P.DS ---
Providers Date of admission: 07/10/20 16:37 Expected date of discharge: 07/11/20 Attending physician: Nathanael Valentin Consults: 07/10/20 16:38 Consult Physician Urgent Consulting Provider: [facility] Consult Reason/Comments: acute cp, abn stress test Do you want consulting provider notified?: Yes Primary care physician: Nathanael Valentin [facility] Course: The 60-year-old male with his medical history significant for diabetes hypertension hyperlipidemia obesity family history of cardiac disease was sent to the emergency department after receiving results of having an abnormal stress test he was sent by his primary care physician when he described having intermittent chest pain shortness of breath with exertion. He had extensive workup in emergency department and was admitted to the hospital for cardiac workup, his EKG revealed sinus rhythm with a right bundle branch block left anterior fasicular block, a heparin drip was initiated and continued, cardiology was consulted. He denied having any shortness of breath or chest pain throughout the night, Cardiology performed right and left coronary angiogram left heart catheterization,the catheterizationDid show a mild nonobstructive coronary artery disease no intervention needed and to continueOh with medical treatment. Cardiology cleared for discharge, he's in no acute distress and cleared to go home for discharge. Assessment: Normal stress test revealing ischemia to the inferior wall of the LAD with distribution to the apical segment Intermittent chest pain Exertional shortness of breath Hypertension Hyperlipidemia Diabetes mellitus type II Obesity with a BMI of 43.5 Pertinent Studies: EKG Procedures: Right and left coronary angiogram Left cardiac catheterization Patient Condition at Discharge: Stable Plan - Discharge Summary Discharge Rx Participant: No New Discharge Prescriptions: Continue Glimepiride [Amaryl] 2 mg PO DAILY Insulin Glargine,Hum.rec.anlog [Lantus Solostar] 35 - 45 unit SQ HS Valsartan/Hydrochlorothiazide [Valsartan-Hctz 160-12.5 mg Tab] 1 tab PO DAILY Metoprolol Succinate [Toprol XL] 100 mg PO DAILY Isosorbide Mononitrate ER [Imdur] 30 mg PO DAILY Insulin Lispro [humaLOG Kwikpen] See Protocol SQ AC-TID metFORMIN HCL [Glucophage] 850 mg PO BID amLODIPine [Norvasc] 10 mg PO DAILY Empagliflozin [Jardiance] 25 mg PO DAILY Atorvastatin [Lipitor] 20 mg PO HS Aspirin EC [Ecotrin Low Dose] 81 mg PO DAILY Discharge Medication List Glimepiride [Amaryl] 2 mg PO DAILY 11/15/18 [History] Aspirin EC [Ecotrin Low Dose] 81 mg PO DAILY 07/10/20 [History] Atorvastatin [Lipitor] 20 mg PO HS 07/10/20 [History] Empagliflozin [Jardiance] 25 mg PO DAILY 07/10/20 [History] Insulin Glargine,Hum.rec.anlog [Lantus Solostar] 35 - 45 unit SQ HS 07/10/20 [History] Insulin Lispro [humaLOG Kwikpen] See Protocol SQ AC-TID 07/10/20 [History] Isosorbide Mononitrate ER [Imdur] 30 mg PO DAILY 07/10/20 [History] Metoprolol Succinate [Toprol XL] 100 mg PO DAILY 07/10/20 [History] Valsartan/Hydrochlorothiazide [Valsartan-Hctz 160-12.5 mg Tab] 1 tab PO DAILY 07/10/20 [History] amLODIPine [Norvasc] 10 mg PO DAILY 07/10/20 [History] metFORMIN HCL [Glucophage] 850 mg PO BID 07/10/20 [History] Follow up Appointment(s)/Referral(s): Nathanael Valentin MD [Primary Care Provider] - 1-2 days Patient Instructions/Handouts: Left Heart Catheterization (DC), After Radial Heart Catheterization (GEN) Discharge Disposition: HOME SELF-CARE
[2020-07-12] MEDS ORDERED: HEPARIN SODIUM,PORCINE 10,000 UNIT in SODIUM CHLORIDE 0.9% 1,000 ML IRRIGATION PRN (07:00)
[2020-07-12] MEDS ORDERED: HEPARIN SODIUM,PORCINE 2,500 UNIT in SODIUM CHLORIDE 0.9% 250 ML IRRIGATION PRN (07:00)
== END 2020-07-11 18:52 | disposition home or self-care (01) ==
LOC: EC 14:55 → 6NMEDSUR 16:37
PROVIDERS: ADMIT Family Medicine; ATTEND Family Medicine
DX: I24.9 Acute ischemic heart disease, unspecified (principal); R94.39 Abnormal result of other cardiovascular function study; I45.2 Bifascicular block; R07.89 Other chest pain; R06.09 Other forms of dyspnea; E11.9 Type 2 diabetes mellitus without complications; E78.5 Hyperlipidemia, unspecified; I25.10 Atherosclerotic heart disease of native coronary artery without angina pectoris; I10 Essential (primary) hypertension; E66.9 Obesity, unspecified; Z68.41 Body mass index [BMI] 40.0-44.9, adult; Z79.82 Long term (current) use of aspirin; Z79.4 Long term (current) use of insulin; Z79.899 Other long term (current) drug therapy; I25.2 Old myocardial infarction; Z82.49 Family history of ischemic heart disease and other diseases of the circulatory system
CPT/HCPCS: 96376; 96366 ×2; 96365; 99285; 36415; 93005; 93458; 83880; 80053; 80048; 83735 ×2; 84484; 85025 ×2; 85610 ×2; 85730 ×2; 87635; 71046; 99152; G0378 ×2; C1769; C1894; J2250; J1644 ×3; J2001; J3010; Q9967

== ENCOUNTER → 2020-07-10 | Outpatient (CLI) | payer OTHER ==
[~2020-07-10] MED LIST: REGADENOSON 0.4 MG/5 ML SYRINGE IV ONE
--- NOTE | 2020-07-10 11:54 | NM ---
"EXAMINATION TYPE: NM stress lexiscan cardiolite DATE OF EXAM: 07/10/2020 COMPARISON: NONE HISTORY: Essential hypertension. History of diabetes, hypercholesteremia, and family history of heart attack. Symptoms of chest pain palpitations and difficulty breathing. TECHNIQUE: After the intravenous administration of 9.7 mCi Tc 99m Sestamibi - Cardiolite resting SPE CT images acquired 45 minutes post injection. The patient received 0.4mg Lexiscan, 25.0 mCi Tc 99m Sestamibi - Stress images obtained [address] injection FINDINGS: Review of stress and rest SPECT images demonstrates subtle area of diminished radiotracer uptake on s tress images versus rest images mid to apical level anteroseptal wall seen best on short axis images but also thought present on horizontal long axis images. Small area of acute ischemia cannot be exclu ded. Gated analysis shows satisfactory wall motion with an estimated left ventricular ejection fract ion of 57 %. IMPRESSION: Cannot exclude acute ischemia anteroseptal wall in the LAD distribution mid to apical seg ment. Correlate clinically to determine need for further investigation by direct catheter angiogram. A Yellow level critical message alert has been initiated for Nathanael Valentin MD via the [email or web address] 0 | Critical Results System on 07/10/2020 11:51 AM. This message alert has been sent to Nathanael Valentin MD via the preferences provided by the clinician for the receipt of Radiology Critical Findings. [facility] ID [id number]."
--- NOTE | 2020-07-10 15:33 | EST ---
EXERCISE STRESS AGE: 60 SEX: Male HT: 6'1" WT: 330 lbs. PROTOCOL: Lexiscan STAGE: N/A DURATION OF EXERCISE: 5 min HEART RATE REST: 67 BLOOD PRESSURE REST: 103/72 MAXIMUM HEART RATE ACHIEVED: 79 MAXIMUM BLOOD PRESSURE: 111/58 85% MPHR: 134 100% MPHR: 158 METS: N/A INDICATIONS: chest pain CLINICAL INFORMATION: STRESS DATA: Pretesting physical examination showed a heart rate of 67, pressure is 103/72 mmHg. Baseline EKG showed sinus mechanism. The patient was given 0.4 mg of Lexiscan over 15 seconds per protocol. Max heart rate was 79 beats per minute and maximum pressure was 111/58 mmHg. Clinically, the patient did not have any symptoms of chest pain or chest discomfort and the EKG did not show any significant ST or T-wave abnormalities concerning for ischemia. CONCLUSION: 1. Nondiagnostic electrocardiogram stress testing in response to Lexiscan. 2. Please follow up on the Cardiolite portion. MMODL / IJN: [id number] /
== END ==
LOC: RADNMMAIN 07:51
PROVIDERS: ATTEND Family Medicine
DX: R07.9 Chest pain, unspecified (principal); E78.00 Pure hypercholesterolemia, unspecified; I10 Essential (primary) hypertension; E11.9 Type 2 diabetes mellitus without complications; Z82.49 Family history of ischemic heart disease and other diseases of the circulatory system
CPT/HCPCS: 93017; 78452; A9500; J2785

== ENCOUNTER → 2021-12-21 | Outpatient (CLI) | payer MEDICARE ==
[2021-12-21 19:21] LABS: ALT 32 U/L (10-49); AST 28 U/L (14-35); African American GFR (CKD) 110.2 (60.0-200.0); Albumin 4.2 g/dL (3.8-4.9); Albumin/Globulin Ratio 1.24 (1.60-3.17); Alkaline Phosphatase 73 U/L (41-126); Blood Urea Nitrogen 14.4 mg/dL (9.0-27.0); Calcium 9.8 mg/dL (8.7-10.3); Carbon Dioxide 28.7 mmol/L (20.0-27.5); Chloride 99 mmol/L (96-109); Chol/HDL Ratio 4.45 Ratio; Globulin 3.4 g/dL (1.6-3.3); Glucose 173 mg/dL (70-110); LDL Cholesterol,Calculated 97.9 mg/dL (0.0-131.0); Non-African American GFR(CKD) 95.1 (60.0-200.0); Potassium 4.3 mmol/L (3.5-5.5); Sodium 139 mmol/L (135-145); Total Protein 7.6 g/dL (6.2-8.2)
[2021-12-21 23:40] LABS: Urine Creatinine 41.8 mg/dL (39.0-259.0)
== END | disposition home or self-care (01) ==
LOC: LABWHC1 10:54
PROVIDERS: ATTEND Internal Medicine Endocrinology, Diabetes & Metabolism
DX: E11.65 Type 2 diabetes mellitus with hyperglycemia (principal)
CPT/HCPCS: 36415; 80053; 80061; 82043; 82570; 83036; 84443

== ENCOUNTER → 2022-05-13 | Outpatient (CLI) | payer OTHER ==
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
== END | disposition home or self-care (01) ==
LOC: RADMRIMAIN 15:11
PROVIDERS: ATTEND Family Medicine
DX: I67.82 Cerebral ischemia (principal); G31.9 Degenerative disease of nervous system, unspecified; M47.22 Other spondylosis with radiculopathy, cervical region; M41.82 Other forms of scoliosis, cervical region; M50.123 Cervical disc disorder at C6-C7 level with radiculopathy; M99.71 Connective tissue and disc stenosis of intervertebral foramina of cervical region
CPT/HCPCS: 70551; 72141

== ENCOUNTER → 2022-06-01 | Outpatient (CLI) | payer OTHER | END | disposition home or self-care (01) | LOC: LABWHC1 13:26 | PROVIDERS: ATTEND Surgery Plastic and Reconstructive Surgery | DX: Z01.89 Encounter for other specified special examinations (principal); I45.2 Bifascicular block; I49.8 Other specified cardiac arrhythmias; R94.31 Abnormal electrocardiogram [ECG] [EKG] | CPT/HCPCS: 36415; 93005 ==

== ENCOUNTER → 2022-09-02 | Outpatient (CLI) | payer OTHER ==
[2022-09-02 11:48] LABS: ALT 22 U/L (4-49); AST 21 U/L (17-59); African American GFR (CKD) >90 (>60 ml/min/1.73 sqM); Albumin 4.1 g/dL (3.5-5.0); Albumin/Globulin Ratio 1.2; Alkaline Phosphatase 67 U/L (38-126); Anion Gap 13 mmol/L; Blood Urea Nitrogen 21 mg/dL (9-20); Calcium 8.9 mg/dL (8.4-10.2); Carbon Dioxide 26 mmol/L (22-30); Chloride 102 mmol/L (98-107); Globulin 3.3 g/dL; Glucose 117 mg/dL (74-99); Non-African American GFR(CKD) >90 (>60 ml/min/1.73 sqM); Sodium 141 mmol/L (137-145); Total Bilirubin 0.5 mg/dL (0.2-1.3); Total Protein 7.4 g/dL (6.3-8.2)
[2022-09-02 21:04] LABS: Chol/HDL Ratio 3.08 Ratio; LDL Cholesterol,Calculated 62.8 mg/dL (0.0-131.0)
[2022-09-02 22:18] LABS: Urine Creatinine 95.6 mg/dL (39.0-259.0)
== END | disposition home or self-care (01) ==
LOC: LABWHC1 09:32
PROVIDERS: ATTEND Internal Medicine Endocrinology, Diabetes & Metabolism
DX: E11.65 Type 2 diabetes mellitus with hyperglycemia (principal)
CPT/HCPCS: 36415; 80053; 80061; 82043; 82570; 83036; 84443

== ENCOUNTER 2023-04-07 10:28 | Inpatient (IN) | payer OTHER ==
[~2023-04-07 10:28] MED LIST changes: +ACETAMINOPHEN TAB 500 MG TAB PO PRN; +HYDROmorphone 0.5 MG/0.5 ML SYRINGE IVP PRN; +ONDANSETRON 4 MG/2 ML VIAL IVP ONE; +ONDANSETRON 4 MG/2 ML VIAL IVP PRN; -REGADENOSON 0.4 MG/5 ML SYRINGE IV ONE; +ceFAZolin 3 GM in SODIUM CHLORIDE 0.9% 100 ML IVPB PRN
[2023-04-07] MEDS: LACTATED RINGERS 1,000 ML IV SCH (11:32)
[2023-04-07] MEDS ORDERED: DEXAMETHASONE SOD PHOSPHATE 4 MG/ML 1 ML VIAL IVP ONE (11:33)
[2023-04-07] MEDS: HEPARIN SODIUM,PORCINE/PF 5,000 UNIT/0.5 ML SYRINGE SQ PRN ×2 (11:33→12:24)
[2023-04-07] MEDS ORDERED: ACETAMINOPHEN TAB 500 MG TAB ONE (11:47)
[2023-04-07] MEDS ORDERED: HEPARIN SODIUM,PORCINE/PF 5,000 UNIT/0.5 ML SYRINGE SQ ONE (11:47)
[2023-04-07 11:58] LABS: Glucose,Whole Blood 82 mg/dL (70-110)
[2023-04-07] MEDS ORDERED: MIDAZOLAM 2 MG/2 ML VIAL IVP ONE (12:09)
[2023-04-07] MEDS ORDERED: fentaNYL (PF) 50 MCG/1 ML VIAL IVP ONE (12:09)
[2023-04-07] MEDS ORDERED: TAMSULOSIN 0.4 MG CAP.ER.24H PO STA (12:27)
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
[2023-04-07 12:35] LABS: Basophils % (A) 0 %; Eosinophils # (A) 0.3 k/uL (0-0.7); Eosinophils % (A) 4 %; HCT 41.5 % (39.0-53.0); HGB 13.8 gm/dL (13.0-17.5); Lymphocytes # (A) 1.7 k/uL (1.0-4.8); Lymphocytes % (A) 24 %; MCH 30.7 pg (25.0-35.0); MCHC 33.3 g/dL (31.0-37.0); MCV 92.5 fL (80.0-100.0); Mean Platelet Volume 7.7; Monocytes # (A) 0.4 k/uL (0-1.0); Monocytes % (A) 5 %; Neutrophils # (A) 4.5 k/uL (1.3-7.7); Neutrophils % (A) 64 %; Platelet Count 257 k/uL (150-450); RBC 4.49 m/uL (4.30-5.90); RDW 13.9 % (11.5-15.5); WBC 7.1 k/uL (3.8-10.6)
[2023-04-07 12:41] LABS: Potassium 4.7 mmol/L (3.5-5.1)
[2023-04-07] MEDS ORDERED: fentaNYL (PF) 50 MCG/ML 2 ML AMP ONE (13:05)
[2023-04-07] MEDS ORDERED: PROPOFOL 10 MG/ML 20 ML VIAL IV ONE (13:05)
[2023-04-07] MEDS ORDERED: GLYCOPYRROLATE 0.2 MG/ML 2 ML VIAL ONE (13:05)
[2023-04-07] MEDS ORDERED: KETOROLAC 15 MG/ML 1 ML VIAL ONE (13:05)
[2023-04-07] MEDS ORDERED: NEOSTIGMINE 1 MG/ML 10 ML VIAL ONE (13:05)
[2023-04-07] MEDS ORDERED: ROPIVACAINE 5 MG/ML 30 ML VIAL ONE (13:05)
[2023-04-07] MEDS ORDERED: HYDROmorphone (PF) 1 MG/ML ONE (13:05)
[2023-04-07] MEDS ORDERED: LIDOCAINE 1% INJ 10MG/ML (20 ML MDV) ONE (13:05)
[2023-04-07] MEDS ORDERED: ROCURONIUM 10 MG/ML (5 ML VIAL) IV ONE (13:05)
[2023-04-07] MEDS ORDERED: MIDAZOLAM 2 MG/2 ML VIAL ONE (13:05)
[2023-04-07] MEDS ORDERED: SUCCINYLCHOLINE CHLORIDE 200 MG/10 ML VIAL IV ONE (13:05)
[2023-04-07] MEDS ORDERED: PHENYLEPHRINE-0.9% NACL SYG 1,000 MCG/10 ML SYRINGE ONE (13:05)
--- NOTE | 2023-04-07 13:05 | P.ANPRN ---
Procedure Note - Anesthesia - Nerve Block Performed Bilateral Erector Spinae Single Time Out Performed: Yes (1208) Date of Procedure: 04/07/23 Procedure Start Time: 12:09 Procedure Stop Time: 12:14 Location of Patient: PreOp Indication: Acute Post-Operative Pain, Requested by Surgeon Specifically requested for management of pain by : Sandrita Chapa Sedation Type: Sedate with meaningful contact maintained Preparation: Sterile Prep Position: Prone Catheter: None Needle Types: Pajunk Needle Gauge: 21 (x2) Ultrasound used to visualize needle placement: Yes Ultrasound used to observe medication spread: Yes Injectate: 0.5% Ropivacaine (see comment for volume) (20cc each side) Blood Aspirated: No Pain Paresthesia on Injection Noted: No Resistance on Injection: Normal Image Stored and Saved: Yes Events: Uneventful and Well Tolerated
[2023-04-07] MEDS ORDERED: BUPIVACAINE (PF) 0.25% 10 ML VIAL SQ ONE (13:45)
[2023-04-07] MEDS ORDERED: LACTATED RINGERS 1,000 ML IV ONE (14:39)
[2023-04-07] MEDS ORDERED: TAMSULOSIN 0.4 MG CAP.ER.24H PO ONE (16:46)
[2023-04-07] MEDS ORDERED: HYDROcodone/APAP 5-325MG 1 EACH TAB ONE (16:59)
[2023-04-07] MEDS ORDERED: HYDROcodone/APAP 5-325MG 1 EACH TAB PO ONE (17:00)
[2023-04-07] MEDS ORDERED: HYDROmorphone 1 MG/ML 1 ML SYRINGE IVP PRN (18:05)
[2023-04-07] MEDS ORDERED: NALOXONE 0.4 MG/ML 1 ML VIAL IV PRN (18:05)
[2023-04-07] MEDS ORDERED: HYDROcodone/APAP 5-325MG 1 EACH TAB PO PRN (18:05)
[2023-04-07] MEDS ORDERED: DEXTROSE 50% SYRINGE 50 ML IVP PRN ×2 (18:09)
[2023-04-07] MEDS ORDERED: diphenhydrAMINE 50 MG/ML 1 ML VIAL IVP PRN (18:09)
[2023-04-07] MEDS ORDERED: MAGNESIUM HYDROXIDE 2,400 MG/30 ML CUP PO PRN (18:09)
--- NOTE | 2023-04-07 18:09 | P.PN ---
Progress Note - Text Progress Note Date: 04/07/23 Patient has multiple comorbidities including morbid obesity, uncontrolled diabetes type 2, hypertensive heart disease with congestive heart failure. Patient reports intractable incisional pain. Recommend observation status anticipated hospitalization 48-72 hours.
[2023-04-07 18:11] LABS: Glucose,Whole Blood 158 mg/dL (70-110)
[2023-04-07] MEDS ORDERED: HYDROmorphone PCA 10 MG/50 ML BAG IV SCH (19:00)
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
[2023-04-07 20:45] LABS: Glucose,Whole Blood 184 mg/dL (70-110)
[2023-04-07] MEDS: INSULIN ASPART (NovoLOG) 100 UNIT/ML VIAL SQ SCH (21:16)
[2023-04-07] MEDS: metFORMIN 850 MG TAB PO SCH (21:16)
[2023-04-07] MEDS: DOCUSATE 100 MG CAP PO SCH (21:16)
[2023-04-07] MEDS: HEPARIN SODIUM,PORCINE 5,000 UNIT/ML 1 ML VIAL SQ SCH (21:16)
[2023-04-07] MEDS ORDERED: NON FORMULARY DRUG (Dulaglutide [Trulicity] 1.5 MG/0.5 ML Each) SQ SCH (22:00)
[2023-04-08] MEDS: LACTATED RINGERS 1,000 ML IV SCH (05:41)
[2023-04-08] MEDS: INSULIN ASPART (NovoLOG) 100 UNIT/ML VIAL SQ SCH ×2 (06:28→13:39)
[2023-04-08 06:29] LABS: Glucose,Whole Blood 136 mg/dL (70-110)
[2023-04-08] MEDS ORDERED: PIOGLITAZONE 45 MG TAB PO SCH (09:00)
[2023-04-08] MEDS ORDERED: DAPAGLIFLOZIN PROPANEDIOL 10 MG TABLET PO SCH (09:00)
[2023-04-08] MEDS ORDERED: VALSARTAN 160 MG TAB PO SCH (09:00)
[2023-04-08] MEDS ORDERED: GLIMEPIRIDE 4 MG TAB PO SCH (09:00)
[2023-04-08] MEDS ORDERED: hydroCHLOROthiazide 12.5 MG CAP PO SCH (09:00)
[2023-04-08] MEDS ORDERED: LACTULOSE 20 GM/30 ML CUP PO SCH (09:00)
[2023-04-08] MEDS ORDERED: amLODIPine 10 MG TAB PO SCH (09:00)
[2023-04-08] MEDS ORDERED: ISOSORBIDE MONONITRATE ER 30 MG TAB.ER.24H PO SCH (09:00)
[2023-04-08] MEDS ORDERED: METOPROLOL SUCCINATE (ER) 25 MG TAB.ER.24H PO SCH (09:00)
[2023-04-08] MEDS ORDERED: ONDANSETRON 4 MG/2 ML VIAL IVP PRN (09:43)
[2023-04-08] MEDS: DOCUSATE 100 MG CAP PO SCH (10:00)
[2023-04-08] MEDS: metFORMIN 850 MG TAB PO SCH (10:00)
[2023-04-08] MEDS: HEPARIN SODIUM,PORCINE 5,000 UNIT/ML 1 ML VIAL SQ SCH (10:00)
[2023-04-08 10:50] VITALS: BP 129/75; PULSE 74; RESP 16; TEMP 97.4
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
[2023-04-08 12:28] LABS: Glucose,Whole Blood 181 mg/dL (70-110)
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
== END 2023-04-08 17:07 | disposition home or self-care (01) | DRG 353 ==
LOC: OR 10:28 → 6NMEDSUR 14:37 → OR 18:05
PROVIDERS: ADMIT Surgery Plastic and Reconstructive Surgery; ATTEND Surgery Plastic and Reconstructive Surgery
PROC: 8E0W4CZ Robotic Assisted Procedure of Trunk Region, Percutaneous Endoscopic Approach (ICD-10-PCS; 2023-04-07)
PROC: 3E0T3BZ Introduction of Anesthetic Agent into Peripheral Nerves and Plexi, Percutaneous Approach (ICD-10-PCS; 2023-04-07)
PROC: 0WUF4JZ Supplement Abdominal Wall with Synthetic Substitute, Percutaneous Endoscopic Approach (ICD-10-PCS; principal; 2023-04-07 12:15)
DX: K43.6 Other and unspecified ventral hernia with obstruction, without gangrene (principal); K56.2 Volvulus; Z68.42 Body mass index [BMI] 45.0-49.9, adult; I11.0 Hypertensive heart disease with heart failure; I50.9 Heart failure, unspecified; E66.01 Morbid (severe) obesity due to excess calories; E11.65 Type 2 diabetes mellitus with hyperglycemia; E78.5 Hyperlipidemia, unspecified; I25.10 Atherosclerotic heart disease of native coronary artery without angina pectoris; K42.9 Umbilical hernia without obstruction or gangrene; M54.9 Dorsalgia, unspecified; M54.2 Cervicalgia; V89.2XXA Person injured in unspecified motor-vehicle accident, traffic, initial encounter; Y92.410 Unspecified street and highway as the place of occurrence of the external cause; Z79.85 Long-term (current) use of injectable non-insulin antidiabetic drugs; Z79.82 Long term (current) use of aspirin; Z79.899 Other long term (current) drug therapy; Z79.84 Long term (current) use of oral hypoglycemic drugs
CPT/HCPCS: 64999; 80051; 83036; 85025

== ENCOUNTER 2023-06-23 09:53 | Observation (INO) | payer MEDICARE ==
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
[2023-06-23 11:12] LABS: Basophils % (A) 0 %; Eosinophils # (A) 0.2 k/uL (0-0.7); Eosinophils % (A) 3 %; HCT 42.5 % (39.0-53.0); Lymphocytes # (A) 1.1 k/uL (1.0-4.8); Lymphocytes % (A) 14 %; MCH 30.5 pg (25.0-35.0); MCV 92.6 fL (80.0-100.0); Mean Platelet Volume 7.7; Monocytes # (A) 0.4 k/uL (0-1.0); Monocytes % (A) 5 %; Neutrophils # (A) 5.9 k/uL (1.3-7.7); Neutrophils % (A) 77 %; Platelet Count 207 k/uL (150-450); RDW 14.4 % (11.5-15.5); WBC 7.7 k/uL (3.8-10.6)
[2023-06-23 11:35] LABS: ALT 16 U/L (4-49); AST 23 U/L (17-59); African American GFR (CKD) >90 (>60 ml/min/1.73 sqM); Albumin 3.3 g/dL (3.5-5.0); Alkaline Phosphatase 55 U/L (38-126); Anion Gap 10 mmol/L; Blood Urea Nitrogen 16 mg/dL (9-20); Calcium 8.8 mg/dL (8.4-10.2); Carbon Dioxide 21 mmol/L (22-30); Chloride 109 mmol/L (98-107); Glucose 111 mg/dL (74-99); Magnesium 1.7 mg/dL (1.6-2.3); Non-African American GFR(CKD) >90 (>60 ml/min/1.73 sqM); Prothrombin Time 10.8 sec (10.0-12.5); Sodium 140 mmol/L (137-145); Total Bilirubin 0.6 mg/dL (0.2-1.3); Total Protein 6.3 g/dL (6.3-8.2)
[2023-06-23 11:51] LABS: Potassium 4.5 mmol/L (3.5-5.1)
[2023-06-23 12:06] LABS: Partial Thromboplastin Time 19.9 sec (22.0-30.0)
[2023-06-23] MEDS ORDERED: ACETAMINOPHEN TAB 500 MG TAB PO PRN (12:19)
[2023-06-23] MEDS ORDERED: ONDANSETRON 4 MG/2 ML VIAL IVP PRN (12:20)
[2023-06-23] MEDS ORDERED: DEXTROSE 50% SYRINGE 50 ML IVP PRN ×2 (12:20)
[2023-06-23] MEDS ORDERED: NALOXONE 0.4 MG/ML 1 ML VIAL IV PRN ×2 (12:20→12:37)
[2023-06-23] MEDS ORDERED: amLODIPine 10 MG TAB PO SCH (12:30)
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
[2023-06-23 12:57] LABS: Glucose,Whole Blood 128 mg/dL (70-110)
[2023-06-23] MEDS: INSULIN ASPART (NovoLOG) 100 UNIT/ML VIAL SQ SCH (12:59)
[2023-06-23] MEDS: HEPARIN SOD,PORK IN 0.45% NACL 25,000 UNIT in 0.45% NACL 1 250ML.BAG IV SCH (13:28)
[2023-06-23] MEDS: HEPARIN SODIUM 1,000 UN/ML (10ML VL) IV ONE (13:32)
[2023-06-23] MEDS: SODIUM CHLORIDE 0.9% 1,000 ML IV SCH (13:40)
[2023-06-23] MEDS: GLIMEPIRIDE 4 MG TAB PO SCH (14:36)
[2023-06-23] MEDS: ASPIRIN 81 MG PO SCH (14:36)
[2023-06-23] MEDS: metFORMIN 850 MG TAB PO SCH (14:36)
[2023-06-23 16:40] LABS: Glucose,Whole Blood 152 mg/dL (70-110)
[2023-06-23 17:29] VITALS: RESP 18
[2023-06-23] MEDS: HEPARIN SODIUM 1,000 UN/ML (10ML VL) IV PRN (21:16)
[2023-06-23 22:10] LABS: Glucose,Whole Blood 137 mg/dL (70-110)
[2023-06-23] MEDS: ATORVASTATIN 20 MG TAB PO SCH (22:11)
[2023-06-24 05:21] LABS: African American GFR (CKD) >90 (>60 ml/min/1.73 sqM); Anion Gap 7 mmol/L; Blood Urea Nitrogen 19 mg/dL (9-20); Calcium 8.9 mg/dL (8.4-10.2); Carbon Dioxide 24 mmol/L (22-30); Chloride 108 mmol/L (98-107); Glucose 135 mg/dL (74-99); Non-African American GFR(CKD) >90 (>60 ml/min/1.73 sqM); Potassium 3.8 mmol/L (3.5-5.1); Sodium 139 mmol/L (137-145)
[2023-06-24 05:37] LABS: Partial Thromboplastin Time 35.5 sec (22.0-30.0); Prothrombin Time 11.1 sec (10.0-12.5)
[2023-06-24 08:19] LABS: Basophils # (A) 0.01 X 10*3/uL (0.00-0.10); Basophils % (A) 0.1 %; Eosinophils # (A) 0 X 10*3/uL (0.04-0.35); Eosinophils % (A) 0 %; HCT 43.1 % (39.6-50.0); HGB 14.1 g/dL (13.0-17.0); Lymphocytes % (A) 14.2 %; MCH 29.8 pg (27.0-32.0); MCHC 32.7 g/dL (32.0-37.0); MCV 91.1 FL (80.0-97.0); Mean Platelet Volume 9.7 FL (9.5-12.2); Monocytes # (A) 0.47 X 10*3/uL (0.20-1.00); Monocytes % (A) 5.1 %; NRBC Per 100 WBC 0 X 10*3/uL (0.00-0.01); Neutrophils # (A) 7.34 X 10*3/uL (1.80-7.70); Neutrophils % (A) 80.1 %; Platelet Count 233 X 10*3/uL (140-440); RBC 4.73 X 10*6/uL (4.40-5.60); RDW 14.6 % (11.5-14.5); WBC 9.17 X 10*3/uL (4.50-10.00)
[2023-06-24] MEDS ORDERED: amLODIPine 10 MG TAB PO SCH (09:00)
[2023-06-24] MEDS ORDERED: APIXABAN 5 MG TAB PO SCH (09:00)
[2023-06-24] MEDS: DAPAGLIFLOZIN PROPANEDIOL 10 MG TABLET PO SCH (09:03)
[2023-06-24] MEDS: PIOGLITAZONE 45 MG TAB PO SCH (09:04)
[2023-06-24] MEDS: TAMSULOSIN 0.4 MG CAP.ER.24H PO SCH (09:04)
[2023-06-24] MEDS: VALSARTAN 160 MG TAB PO SCH (09:04)
[2023-06-24] MEDS: ISOSORBIDE MONONITRATE ER 30 MG TAB.ER.24H PO SCH (09:04)
[2023-06-24] MEDS: hydroCHLOROthiazide 12.5 MG CAP PO SCH (09:05)
[2023-06-24] MEDS: METOPROLOL SUCCINATE (ER) 25 MG TAB.ER.24H PO SCH (09:06)
[2023-06-24 09:08] LABS: Glucose,Whole Blood 122 mg/dL (70-110)
[2023-06-24] MEDS: AMIODARONE 200 MG TAB PO SCH (09:09)
[2023-06-24] MEDS: APIXABAN 5 MG TAB PO SCH (09:10)
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
--- NOTE | 2023-06-24 12:09 | CA ---
Transthoracic Echo Report Name: Efra Farmer Age: 63 Gender: M : 1960 Exam Date: 06/24/2023 08:31 Exam Location: [facility] Ht (in): 71 Wt (lb): 348 Ordering Physician: Charissa Johnson Attending/Referring Phys: [id number], Elizabeth Engineering Project Designer Jed Bruner RDCS Procedure CPT: Indications: cardiac clearance, LV function Cardiac Hx: Technical Quality: Very technically difficult study Contrast 1: Definity Total Dose (mL): 3 Contrast 2: Total Dose (mL): MEASUREMENTS (Male / Female) Normal Values 2D ECHO LV Diastolic Diameter PLAX 4.5 cm 4.2 - 5.9 / 3.9 - 5.3 cm LV Systolic Diameter PLAX 3.4 cm IVS Diastolic Thickness 1.3 cm 0.6 - 1.0 / 0.6 - 0.9 cm LVPW Diastolic Thickness 0.9 cm 0.6 - 1.0 / 0.6 - 0.9 cm LV Relative Wall Thickness 0.5 Aortic Root Diameter 3.6 cm LA Systolic Diameter LX 4.3 cm 3.0 - 4.0 / 2.7 - 3.8 cm DOPPLER AV Peak Velocity 88.7 cm/s AV Peak Gradient 3.1 mmHg AV Mean Velocity 62.7 cm/s AV Mean Gradient 1.8 mmHg AV Velocity Time Integral 18.5 cm LVOT Peak Velocity 79.3 cm/s LVOT Peak Gradient 2.5 mmHg LVOT Velocity Time Integral 12.6 cm Mitral E Point Velocity 78.7 cm/s Mitral A Point Velocity 30.7 cm/s Mitral E to A Ratio 2.6 MV Deceleration Time 265.1 ms FINDINGS Left Ventricle Mildly increased septal wall thickness. Left ventricular ejection fraction is estimated at 55-60 %. Right Ventricle Right ventricle not well visualized. Right Atrium Right atrium not well visualized. Left Atrium Mildly increased left atrial diameter. Mitral Valve No mitral regurgitation. Aortic Valve Aortic valve not well visualized. Tricuspid Valve Trace tricuspid regurgitation. Pulmonic Valve Pulmonic valve not well visualized. Pericardium Normal pericardium. Aorta Aortic root and proximal ascending aorta not well visualized. CONCLUSIONS Limited echo, suboptimal images due to poor acoustic windows. Previous echo recorded on 06/04/20. Left ventricular ejection fraction 55-60% Mild to moderately increased left ventricular wall thickness No mitral regurgitation No pericardial effusion Previewed by: Dr. Marco Antonio Melvin DO (Electronically Signed) Final Date: 24 June 2023 12:08
[2023-06-24 12:32] LABS: Glucose,Whole Blood 134 mg/dL (70-110)
[2023-06-24 16:07] VITALS: BP 90/51; PULSE 79; TEMP 98.2
== END 2023-06-24 16:23 | disposition home or self-care (01) ==
LOC: EC 09:53 → 6NMEDSUR 13:30 → 3SCARD 06-24 05:30
PROVIDERS: ADMIT Internal Medicine; ATTEND Internal Medicine
DX: I48.0 Paroxysmal atrial fibrillation (principal); K81.1 Chronic cholecystitis; E11.9 Type 2 diabetes mellitus without complications; E78.5 Hyperlipidemia, unspecified; I10 Essential (primary) hypertension; I25.10 Atherosclerotic heart disease of native coronary artery without angina pectoris; E66.01 Morbid (severe) obesity due to excess calories; Z68.42 Body mass index [BMI] 45.0-49.9, adult; Z79.82 Long term (current) use of aspirin; Z79.84 Long term (current) use of oral hypoglycemic drugs; Z79.899 Other long term (current) drug therapy; Z82.49 Family history of ischemic heart disease and other diseases of the circulatory system
CPT/HCPCS: 96376 ×2; 96361; 96365; 96366; 99291; 36415; 93005; 93306; 80053; 80048; 84443; 83735; 84484; 85025 ×2; 85610 ×2; 85730 ×2; G0378 ×3; Q9957; J1644 ×4

== ENCOUNTER → 2023-06-23 | Day surgery (SDC) | payer MEDICARE ==
[~2023-06-23] MED LIST changes: -ACETAMINOPHEN TAB 500 MG TAB PO PRN; +INDOCYANINE GREEN 25 MG VIAL IV ONE; +LIDOCAINE 1% (10MG/ML) FOR IV START INTRADERMA PRN; -ONDANSETRON 4 MG/2 ML VIAL IVP ONE; +TAMSULOSIN 0.4 MG CAP.ER.24H PO ONE; +droPERidol 5 MG/2 ML VIAL IVP ONE
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
[2023-06-23] MEDS: LACTATED RINGERS 1,000 ML IV SCH (08:25)
[2023-06-23 08:50] VITALS: BP 115/79; PULSE 93; RESP 16; TEMP 97.8
[2023-06-23 08:53] LABS: Glucose,Whole Blood 92 mg/dL (70-110)
[2023-06-23 08:54] LABS: Basophils % (A) 1 %; Eosinophils # (A) 0.4 k/uL (0-0.7); Eosinophils % (A) 5 %; HCT 44.5 % (39.0-53.0); HGB 14.4 gm/dL (13.0-17.5); Lymphocytes # (A) 1.9 k/uL (1.0-4.8); Lymphocytes % (A) 24 %; MCH 29.9 pg (25.0-35.0); MCHC 32.5 g/dL (31.0-37.0); Mean Platelet Volume 7.2; Monocytes # (A) 0.4 k/uL (0-1.0); Monocytes % (A) 5 %; Neutrophils # (A) 4.9 k/uL (1.3-7.7); Neutrophils % (A) 63 %; Platelet Count 248 k/uL (150-450); RBC 4.83 m/uL (4.30-5.90); RDW 14.4 % (11.5-15.5); WBC 7.8 k/uL (3.8-10.6)
[2023-06-23] MEDS: ACETAMINOPHEN TAB 500 MG TAB PO PRN (08:57)
[2023-06-23] MEDS: DEXAMETHASONE SOD PHOSPHATE 4 MG/ML 1 ML VIAL IV ONE (08:57)
[2023-06-23] MEDS: ONDANSETRON 4 MG/2 ML VIAL IVP ONE (08:57)
[2023-06-23] MEDS: HEPARIN SODIUM,PORCINE 5,000 UNIT/ML 1 ML VIAL SQ PRN (08:57)
[2023-06-23 09:18] LABS: ALT 18 U/L (4-49); AST 29 U/L (17-59); African American GFR (CKD) >90 (>60 ml/min/1.73 sqM); Albumin 3.9 g/dL (3.5-5.0); Alkaline Phosphatase 53 U/L (38-126); Anion Gap 7 mmol/L; Blood Urea Nitrogen 18 mg/dL (9-20); Calcium 9.3 mg/dL (8.4-10.2); Carbon Dioxide 25 mmol/L (22-30); Chloride 110 mmol/L (98-107); Glucose 102 mg/dL (74-99); Non-African American GFR(CKD) >90 (>60 ml/min/1.73 sqM); Sodium 142 mmol/L (137-145); Total Bilirubin 0.7 mg/dL (0.2-1.3); Total Protein 7.2 g/dL (6.3-8.2)
--- NOTE | 2023-06-23 09:48 | P.PN ---
Progress Note - Text Progress Note Date: 06/23/23 Notified by anesthesia the patient has new onset atrial fibrillation. Surgery on hold pending cardiology consultation.
--- NOTE | 2023-06-23 11:34 | P.PN ---
Progress Note - Text Progress Note Date: 06/23/23 Mr. Farmer is a 63-year-old pleasant male scheduled for elective robotic-assisted laparoscopic cholecystectomy. In preop is to lead EKG showed new onset of atrial fibrillation. His previous EKG was sinus rhythm, and cardiology note also showed sinus rhythm. Discussed with Dr. Duncan. Requesting cardiology consultation before proceeding for elective surgery.
== END ==
LOC: OR 07:56
PROVIDERS: ATTEND Surgery Plastic and Reconstructive Surgery
DX: Z53.8 Procedure and treatment not carried out for other reasons (principal); K80.10 Calculus of gallbladder with chronic cholecystitis without obstruction; I10 Essential (primary) hypertension; E78.5 Hyperlipidemia, unspecified; E11.9 Type 2 diabetes mellitus without complications; Z98.890 Other specified postprocedural states; Z86.73 Personal history of transient ischemic attack (TIA), and cerebral infarction without residual deficits; Z79.84 Long term (current) use of oral hypoglycemic drugs
CPT/HCPCS: 80053; 85025; J1644; J1100; J2405

== ENCOUNTER → 2024-03-22 | Day surgery (SDC) | payer MEDICARE ==
[2024-03-21 09:51] VITALS: BMI 39.5
[~2024-03-22] MED LIST changes: -HYDROmorphone 0.5 MG/0.5 ML SYRINGE IVP PRN; -INDOCYANINE GREEN 25 MG VIAL IV ONE; -ONDANSETRON 4 MG/2 ML VIAL IVP PRN; -TAMSULOSIN 0.4 MG CAP.ER.24H PO ONE; -ceFAZolin 3 GM in SODIUM CHLORIDE 0.9% 100 ML IVPB PRN; -droPERidol 5 MG/2 ML VIAL IVP ONE
[2024-03-22 07:30] VITALS: BP 151/74; PULSE 71; RESP 16; TEMP 97.1
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
[2024-03-22] MEDS: LACTATED RINGERS 1,000 ML IV SCH (07:43)
[2024-03-22] MEDS: IV FLUID CONTINUATION 1,000 ML IV ONE (07:43)
[2024-03-22 07:46] LABS: Glucose,Whole Blood 101 mg/dL (70-110)
[2024-03-22] MEDS: NA PHOS,M-B/NA PHOS,DI-BA 133 ML ENEMA RECTAL STA (07:54)
[2024-03-22] MEDS: NA PHOS,M-B/NA PHOS,DI-BA 133 ML ENEMA RECTAL ONE (08:11)
--- NOTE | 2024-03-22 08:30 | P.HPADDEND ---
H&P Addendum H&P Addendum Date: 03/22/24 Patient reports starting his bowel prep at noon yesterday however today he still has moderate solid and semisolid stool. Patient given option to reschedule versus attempted enemas. Despite 2 enemas, patient still has moderate brown textured stool. As result, surgery is canceled for colonoscopy today. Patient will be rescheduled for another time after adjustment of bowel prep.
== END | disposition home or self-care (01) ==
LOC: ORWHC2ENDO 07:05
PROVIDERS: ATTEND Surgery Plastic and Reconstructive Surgery
DX: Z53.8 Procedure and treatment not carried out for other reasons (principal); Z12.11 Encounter for screening for malignant neoplasm of colon; E11.9 Type 2 diabetes mellitus without complications; E78.5 Hyperlipidemia, unspecified; I10 Essential (primary) hypertension; I48.91 Unspecified atrial fibrillation; K21.9 Gastro-esophageal reflux disease without esophagitis; Z79.01 Long term (current) use of anticoagulants; Z79.84 Long term (current) use of oral hypoglycemic drugs; Z98.890 Other specified postprocedural states

== ENCOUNTER 2024-03-23 06:30 | Observation (INO) | payer MEDICARE ==
[2024-03-21 11:11] VITALS: BMI 39.5
--- NOTE | 2024-03-23 05:30 | P.GSHP ---
History of Present Illness H&P Date: 03/23/24 CHIEF COMPLAINT: Cholecystitis HISTORY OF PRESENT ILLNESS: The patient is a 64-year-old male who presents with history of epigastric including right upper quadrant abdominal pain for over 8 months. He underwent diagnostic studies for the gallbladder. Separately his clinical picture was consistent with cholecystitis. Now he presents for surgical intervention. PAST MEDICAL HISTORY: Please see list PAST SURGICAL HISTORY: Please see list MEDICATIONS: Please see list ALLERGIES: Denies. SOCIAL HISTORY: No illicit drug use or recent tobacco use FAMILY HISTORY: Pertinent for gallbladder disease REVIEW OF ORGAN SYSTEMS: CONSTITUTIONAL: No reports of fevers or chills. HEENT: Denies any troubles with the vision or hearing. ENDOCRINE: No reports of hypothyroidism. No diabetes. RESPIRATORY: No recent pneumonias. CARDIOVASCULAR: Has atrial fibrillation on chronic anticoagulation GI: No blood in stools or constipation. MUSCULOSKELETAL: Has occasional joint pain including back pain. NEURO: No seizure disorders or headaches. No recent stroke. PSYCH: No depression or suicidal ideation. HEMATOLOGIC: No personal or family history of DVTs or pulmonary emboli. PHYSICAL EXAM: VITAL SIGNS: Afebrile vital signs stable GENERAL: Well-developed pleasant male in no acute distress. HEENT: No scleral icterus. Extraocular movements grossly intact. Moist buccal mucosa. NECK: Supple without lymphadenopathy. CHEST: Unlabored respirations. Equal bilateral excursions. CARDIOVASCULAR: Regular rate regular rhythm rhythm. Distal 2+ pulses. ABDOMEN: Soft, nondistended. Tender along the epigastrium and right upper quadrant. MUSCULOSKELETAL: No clubbing, cyanosis, or edema. NEURO : No focal or lateralizing signs. Cranial nerves II-12 within normal limits. PSYCH: Alert and oriented to person, place and time. SKIN: Well perfused. Good skin turgor. ASSESSMENT: 1. Epigastric and right upper quadrant abdominal pain 2. Chronic cholecystitis 3. Morbid obesity due to excess calories BMI 39.6 4. Atrial fibrillation 5. Chronic anticoagulation PLAN: 1. Will need a robotic cholecystectomy possible open. Benefits and risks were described. 2. Heparin for DVT prophylaxis 5000 units. 3. Antibiotic prophylaxis. 4. CBC and CMP on day of procedure 5. Non-narcotic pre and post op pain management reviewed. 6. Indocyanine green for biliary imaging. 7. He is elevated risk for complications with his co-morbidities Past Medical History Past Medical History: Atrial Fibrillation, Diabetes Mellitus, GERD/Reflux, Hyperlipidemia, Hypertension, Musculoskeletal Disorder Additional Past Medical History / Comment(s): neck & back pain since AA last year, gallstones. Type II diabeticNIDDM.Occassional acid reflux."I might have a heart attack 10 years ago." "They tell me I did but I don't know." History of Any Multi-Drug Resistant Organisms: None Reported Past Surgical History: Heart Catheterization, Hernia Repair Additional Past Surgical History / Comment(s): colonoscopy, abdomnial hernia, Past Anesthesia/Blood Transfusion Reactions: No Reported Reaction Additional Past Anesthesia/Blood Transfusion Reaction / Comment(s): sore throat from tube. no hx of blood transfusion to date. Smoking Status: Never smoker - Past Family History Brother(s) Family Medical History: Cancer, Deep Vein Thrombosis (DVT), Pulmonary Embolus Additional Family Medical History / Comment(s): Esophageal cancer. Sister(s) Family Medical History: Cancer Additional Family Medical History / Comment(s): Facial cancer. Medications and Allergies Home Medications Medication Instructions Recorded Confirmed Type Atorvastatin [Lipitor] 20 mg PO HS 07/10/20 03/22/24 History Isosorbide Mononitrate ER [Imdur] 30 mg PO QAM 07/10/20 03/22/24 History Valsartan/Hydrochlorothiazide 1 tab PO QAM 07/10/20 03/22/24 History [Valsartan-Hctz 160-12.5 mg Tab] metFORMIN HCL [Glucophage] 850 mg PO BID 07/10/20 03/22/24 History Dapagliflozin Propanediol [Farxiga] 10 mg PO QAM 04/06/23 03/22/24 History Dulaglutide [Trulicity] 1.5 mg SQ FR 04/06/23 03/22/24 History Pioglitazone [Actos] 45 mg PO QAM 04/06/23 03/22/24 History Glimepiride [Amaryl] 4 mg PO QAM 06/23/23 03/22/24 History Metoprolol Succinate (ER) [Toprol 25 mg PO QAM 06/23/23 03/22/24 History XL] Amiodarone [Cordarone] 200 mg PO BID 03/21/24 03/22/24 History Furosemide [Lasix] 40 mg PO QAM 03/21/24 03/22/24 History amLODIPine BESYLATE 10 mg PO QAM 03/21/24 03/22/24 History Allergies Allergy/AdvReac Type Severity Reaction Status Date / Time No Known Allergies Allergy Verified 03/22/24 07:22
[2024-03-23] MEDS ORDERED: MIDAZOLAM 2 MG/2 ML VIAL IV PRN (07:00)
[2024-03-23 07:04] LABS: Glucose,Whole Blood 119 mg/dL (70-110)
[2024-03-23] MEDS: IV FLUID CONTINUATION 1,000 ML IV ONE (07:09)
[2024-03-23] MEDS: LACTATED RINGERS 1,000 ML IV SCH (07:11)
[2024-03-23] MEDS: ACETAMINOPHEN TAB 500 MG TAB PO PRN ×2 (07:17→16:08)
[2024-03-23] MEDS: HEPARIN SODIUM,PORCINE 5,000 UNIT/ML 1 ML VIAL SQ PRN (07:18)
[2024-03-23] MEDS: ONDANSETRON 4 MG/2 ML VIAL IVP PRN (07:18)
[2024-03-23 07:19] LABS: Basophils % (A) 0 %; Eosinophils # (A) 0.2 k/uL (0-0.7); Eosinophils % (A) 3 %; HGB 14.6 gm/dL (13.0-17.5); Lymphocytes # (A) 1.2 k/uL (1.0-4.8); Lymphocytes % (A) 17 %; MCHC 32.6 g/dL (31.0-37.0); Mean Platelet Volume 6.8; Monocytes # (A) 0.4 k/uL (0-1.0); Monocytes % (A) 6 %; Neutrophils # (A) 5.2 k/uL (1.3-7.7); Neutrophils % (A) 73 %; Platelet Count 262 k/uL (150-450); RBC 4.73 m/uL (4.30-5.90); RDW 14.2 % (11.5-15.5); WBC 7.2 k/uL (3.8-10.6)
[2024-03-23] MEDS ORDERED: HYDROmorphone (PF) 1 MG/ML ONE (07:36)
[2024-03-23] MEDS ORDERED: MIDAZOLAM 2 MG/2 ML VIAL ONE (07:36)
[2024-03-23] MEDS ORDERED: fentaNYL (PF) 50 MCG/ML 2 ML AMP ONE (07:36)
[2024-03-23] MEDS ORDERED: ROCURONIUM 10 MG/ML (5 ML VIAL) IV ONE (07:36)
[2024-03-23] MEDS ORDERED: GLYCOPYRROLATE 0.2 MG/ML 2 ML VIAL ONE (07:36)
[2024-03-23] MEDS ORDERED: PROPOFOL 10 MG/ML 20 ML VIAL IV ONE (07:36)
[2024-03-23] MEDS ORDERED: SUCCINYLCHOLINE CHLORIDE 200 MG/10 ML VIAL IV ONE (07:36)
[2024-03-23] MEDS ORDERED: LIDOCAINE 1% INJ 10MG/ML (20 ML MDV) ONE (07:36)
[2024-03-23] MEDS ORDERED: ePHEDrine 50 MG/ML 1 ML VIAL ONE (07:36)
[2024-03-23] MEDS ORDERED: NEOSTIGMINE 1 MG/ML 10 ML VIAL ONE (07:36)
[2024-03-23] MEDS ORDERED: PHENYLEPHRINE-0.9% NACL SYG 1,000 MCG/10 ML SYRINGE ONE (07:36)
[2024-03-23 07:45] LABS: ALT 33 U/L (4-49); AST 30 U/L (17-59); African American GFR (CKD) >90 (>60 ml/min/1.73 sqM); Albumin 3.8 g/dL (3.5-5.0); Alkaline Phosphatase 71 U/L (38-126); Anion Gap 6 mmol/L; Blood Urea Nitrogen 18 mg/dL (9-20); Calcium 8.8 mg/dL (8.4-10.2); Carbon Dioxide 26 mmol/L (22-30); Chloride 110 mmol/L (98-107); Glucose 131 mg/dL (74-99); Non-African American GFR(CKD) >90 (>60 ml/min/1.73 sqM); Sodium 142 mmol/L (137-145); Total Bilirubin 0.5 mg/dL (0.2-1.3)
[2024-03-23] MEDS: LIDOCAINE 1%-EPI 1:100,000 20 ML VIAL SQ ONE (08:18)
[2024-03-23] MEDS: LACTATED RINGERS 1,000 ML IV ONE (09:15)
[2024-03-23] MEDS: HYDROmorphone 0.5 MG/0.5 ML SYRINGE IVP PRN (10:59)
[2024-03-23] MEDS ORDERED: ONDANSETRON 4 MG/2 ML VIAL IVP PRN (12:34)
[2024-03-23] MEDS ORDERED: NALOXONE 0.4 MG/ML 1 ML VIAL IV PRN (12:34)
--- NOTE | 2024-03-23 12:34 | P.PN ---
Progress Note - Text Progress Note Date: 03/23/24 Notified from recovery unit and anesthesiologist, patient has intractable nausea and vomiting including uncontrolled pain and high risk patient with super morbid obesity, BMI 48.7, hypertensive heart disease with cardiomyopathy, gastroesophageal reflux disease, atrial fibrillation, obstructive sleep apnea. Do recommend admission for observation due to multiple comorbidities including high risk surgery.
[2024-03-23] MEDS ORDERED: DEXTROSE 50% SYRINGE 50 ML IVP PRN ×2 (12:36)
[2024-03-23] MEDS ORDERED: HYDROmorphone 1 MG/ML 1 ML SYRINGE IVP PRN (12:40)
[2024-03-23] MEDS: INDOCYANINE GREEN 25 MG VIAL IV STA (13:40)
[2024-03-23] MEDS: PATIENT'S OWN (Dulaglutide [Trulicity] 1.5 MG/0.5 ML Each) SQ SCH (15:40)
[2024-03-23] MEDS: CYCLOBENZAPRINE 10 MG TAB PO PRN (16:09)
[2024-03-23 17:08] LABS: Glucose,Whole Blood 118 mg/dL (70-110)
[2024-03-23] MEDS: SIMETHICONE 80 MG CHEWABLE PO SCH (17:21)
[2024-03-23] MEDS: INSULIN ASPART (NovoLOG) 100 UNIT/ML VIAL SQ SCH (18:27)
[2024-03-23 20:08] LABS: Glucose,Whole Blood 134 mg/dL (70-110)
[2024-03-23] MEDS: AMIODARONE 200 MG TAB PO SCH (21:12)
[2024-03-23] MEDS: metFORMIN 850 MG TAB PO SCH (21:13)
[2024-03-23] MEDS: ATORVASTATIN 20 MG TAB PO SCH (21:13)
[2024-03-23] MEDS: ENOXAPARIN 30 MG/0.3 ML SYRINGE SQ SCH (23:43)
[2024-03-24 07:02] LABS: Glucose,Whole Blood 136 mg/dL (70-110)
[2024-03-24] MEDS: METOPROLOL SUCCINATE (ER) 25 MG TAB.ER.24H PO SCH (08:29)
[2024-03-24] MEDS: ISOSORBIDE MONONITRATE ER 30 MG TAB.ER.24H PO SCH (08:29)
[2024-03-24] MEDS: DAPAGLIFLOZIN PROPANEDIOL 10 MG TABLET PO SCH (08:29)
[2024-03-24] MEDS: PANTOPRAZOLE 40 MG/10 ML VIAL IV SCH (08:29)
[2024-03-24] MEDS: amLODIPine 10 MG TAB PO SCH (08:29)
[2024-03-24] MEDS: FUROSEMIDE 40 MG TAB PO SCH (08:29)
[2024-03-24] MEDS: GLIMEPIRIDE 4 MG TAB PO SCH (08:30)
[2024-03-24] MEDS: VALSARTAN 160 MG TAB PO SCH (08:30)
[2024-03-24] MEDS: PIOGLITAZONE 45 MG TAB PO SCH (08:30)
[2024-03-24] MEDS: hydroCHLOROthiazide 12.5 MG CAP PO SCH (08:30)
--- NOTE | 2024-03-24 08:53 | P.OP ---
Date of Procedure: 03/23/24 Description of Procedure: SURGEON: VICKY CHAPA MD PREOPERATIVE DIAGNOSES: 1. Symptomatic gallstones 2. Right upper quadrant abdominal pain 3. Morbid obesity due to excess calories, BMI 40.7 4. Diabetes type 2, [id number] with complications 5. Atrial fibrillation with chronic anticoagulant use 6. Hypertensive heart disease 7. Diabetes type 2 with complications 8. Obstructive sleep apnea POSTOPERATIVE DIAGNOSES: 1. Symptomatic gallstone 2. Right upper quadrant abdominal pain 3. Chronic cholecystitis 4. Peritoneal adhesions, right upper quadrant, severe 5. Hepatomegaly 6. Morbid obesity due to excess calories, BMI 40.7 7. Diabetes type 2, [id number] with complications 8. Atrial fibrillation with chronic anticoagulant use 9. Hypertensive heart disease 10. Diabetes type 2 with complications OPERATION: 1. Robotic-assisted da Luther Xi laparoscopic extensive lysis of adhesions over 1.5 hours, over 85% of the case 2. Robotic-assisted da Luther Xi laparoscopic cholecystectomy, multiport with FIREFLY ESTIMATED BLOOD LOSS: 30 mL. SPECIMENS REMOVED: Gallbladder. COMPLICATIONS: None. OPERATIVE FINDINGS: 1. Moderate scarring over entire gallbladder with peritoneal adhesions, pericholecystic with features of chronic cholecystitis 2. Large gallstone over 6 cm adding complexity of case 3. Severe adhesions causing distortion of gallbladder including spiraling of infundibulum posterior to common bile duct and cystic duct requiring additional careful dissection 4. Due to patient multiple high risk medical comorbidities, hospitalization advised INDICATIONS: The patient is a 64-year-old male who presents with symptomatic gallstones. Patient has multiple medical comorbidities where cardiac risk assessment and optimization was performed. Patient had discontinued his blood thinner 3+ days prior to procedure. Robotic assisted laparoscopic approach was described. Benefits and risks of the procedure including but not limited to bleeding, infection, injury to the biliary tree was described. Informed consent was obtained. DESCRIPTION OF PROCEDURE: Patient was brought to the operating room, placed in supine position. After general induction, the abdomen had been prepped and draped in standard sterile fashion. The robotic da Luther XI system was primed. After a timeout protocol was performed, the patient had been prepped and draped in standard sterile fashion. The patient was injected with indocyanine green. A 5 mm 0 degrees laparoscopic trocar entry was performed along the left upper quadrant. The abdomen insufflated to 15 mmHg pressure which was tolerated well. Diagnostic laparoscopy demonstrated no injury to bowel viscera or mesentery. The liver surface was unremarkable. Next, two 8 mm robotic ports were placed along the right upper abdomen. The camera 8-mm port was maintained along the epigastrium. Another 8 mm port was placed along the left upper abdominal wall after exchanging the 5 mm port. Please note that the ports were placed at least 10 to 15 cm away from the target anatomy of the gallbladder. The robot was docked along the left lateral abdomen. The patient was repositioned in reverse Trendelenburg position. Using a grasper for arm 3, a grasper for arm 4, including hook cautery for arm 1, the robotic system was docked and primed as described. Instruments were interchanged by the senior assistant manager including hook cautery, Bovie cautery and clip appliers. I had sat at the console. Hepatomegaly without fatty liver disease. was found. Moderately large gallbladder with severe pericholecystic adhesions adding complexity of case over 80 % of the case. Large gallstone over 5 cm within gallbladder palpated and removed in total. The gallbladder was scarred with peritoneal adhesions including encased in surrouding tissue. Lysis of adhesions was performed using hook cautery to free the gallbladder from the surrounding tissues for over 1.5 hrs where the infundibulum was spiraling posterior to the common bile duct. Next attention was brought to the infundibulum and cystic structures. The infundibulum and cystic duct were dissected free from surrounding tissues. The cystic duct was isolated. FIREFLY was used to identify the cystic artery and cystic structures. A critical view of safety was obtained. Large PLASTIC clips were used throughout the entire case. Using a clip electrician journeyman wireman, 3 clips were placed at the junction of the infundibulum and cystic duct. The cystic duct was divided between clips. Next, the cystic artery was similarly clipped and cauterized. Electro-Bovie cautery was used to remove the gallbladder from the hepatic fossa. Hemostasis was checked and found to be adequate. The robot was undocked. I re-scrubbed into the case. Using a 15 mm Endo Catch bag via the left upper quadrant incision, the specimen was removed from the abdominal cavity after widening the incision to 6-cm. Jamey Rod and 0-Vicryl was used to close the defect. All pneumoperitoneum instruments were evacuated from the abdominal cavity. The incisions were reapproximated using 4-0 Monocryl in an interrupted subcuticular fashion. Please note along the trocar sites, local anesthetic was placed as a field block prior to insertion of all instruments. Liquid glue was applied to the skin. Optifoam was applied to the left upper quadrant incision with abdominal binder. At the end of the procedure needle, sponge, and instrument count had been verified correct by the infectious disease technician. The patient was transferred to postanesthesia care unit in stable condition. Intraoperative films were shared with the patient's family. Plan - Discharge Summary Discharge Rx Participant: No New Discharge Prescriptions: New Simethicone [Gas-X] 125 mg PO AC-TID PRN #20 capsule PRN Reason: Pain Acetaminophen Tab [Tylenol Tab] 1,000 mg PO Q6HR PRN #30 tablet PRN Reason: Pain Cyclobenzaprine [Flexeril] 10 mg PO TID #30 tab Continue Valsartan/Hydrochlorothiazide [Valsartan-Hctz 160-12.5 mg Tab] 1 tab PO QAM Isosorbide Mononitrate ER [Imdur] 30 mg PO QAM metFORMIN HCL [Glucophage] 850 mg PO BID Atorvastatin [Lipitor] 20 mg PO HS Pioglitazone [Actos] 45 mg PO QAM Dulaglutide [Trulicity] 1.5 mg SQ FR Metoprolol Succinate (ER) [Toprol XL] 25 mg PO QAM Amiodarone [Cordarone] 200 mg PO BID amLODIPine BESYLATE 10 mg PO QAM Dapagliflozin Propanediol [Farxiga] 10 mg PO QAM Glimepiride [Amaryl] 4 mg PO QAM Furosemide [Lasix] 40 mg PO QAM Discharge Medication List Atorvastatin [Lipitor] 20 mg PO HS 07/10/20 [History] Isosorbide Mononitrate ER [Imdur] 30 mg PO QAM 07/10/20 [History] Valsartan/Hydrochlorothiazide [Valsartan-Hctz 160-12.5 mg Tab] 1 tab PO QAM 07/10/20 [History] metFORMIN HCL [Glucophage] 850 mg PO BID 07/10/20 [History] Dapagliflozin Propanediol [Farxiga] 10 mg PO QAM 04/06/23 [History] Dulaglutide [Trulicity] 1.5 mg SQ FR 04/06/23 [History] Pioglitazone [Actos] 45 mg PO QAM 04/06/23 [History] Glimepiride [Amaryl] 4 mg PO QAM 06/23/23 [History] Metoprolol Succinate (ER) [Toprol XL] 25 mg PO QAM 06/23/23 [History] Amiodarone [Cordarone] 200 mg PO BID 03/21/24 [History] Furosemide [Lasix] 40 mg PO QAM 03/21/24 [History] amLODIPine BESYLATE 10 mg PO QAM 03/21/24 [History] Acetaminophen Tab [Tylenol Tab] 1,000 mg PO Q6HR PRN #30 tablet 03/23/24 [Rx] Cyclobenzaprine [Flexeril] 10 mg PO TID #30 tab 03/23/24 [Rx] Simethicone [Gas-X] 125 mg PO AC-TID PRN #20 capsule 03/23/24 [Rx] Follow up Appointment(s)/Referral(s): Vicky Chapa MD [STAFF PHYSICIAN] - 03/27/24 6:30 pm (Jose Elias. Calls you.) [facility] [NON-STAFF] - 1 Week Patient Instructions/Handouts: Low Fat Diet (DC), Laparoscopic Cholecystectomy (DC), Lysis of Abdominal Adhesions (DC) Activity/Diet/Wound Care/Special Instructions: RESUME BLOOD THINNER 03/27/24 JOSE ELIAS - WILL CALL YOU BETWEEN 9 am to 8 pm NO LONG DRIVES OR AIRPLANE RIDES OVER 60 MINUTES FOR THE NEXT 2 WEEKS, 04/06/24, DUE TO HIGH RISK OF PULMONARY EMBOLISM/DVTs May drive in 72 hrs, 03/26/24 Recommend low-fat diet for the next 2 days. No lifting over 10 pounds in 2 weeks until 04/06/24, May shower. No bath tub soaks for two weeks until 04/06/24, Diet as tolerated. Use Tylenol, simethicone scheduled for the next 24-48 hours for best pain relief. Use ice along incisions for today to prevent swelling. Discharge Disposition: HOME SELF-CARE
[2024-03-24 12:15] LABS: Glucose,Whole Blood 120 mg/dL (70-110)
--- NOTE | 2024-03-24 16:03 | P.PN ---
Subjective Progress Note Date: 03/24/24 No acute events overnight. No nausea or emesis overnight. Endorses flatus. Tolerating regular diet. Ambulatory and voiding. Endorses incisional pain that is worse with movement. No fevers or chills. No shortness of breath or chest pain. Objective - Vital Signs Vital signs: Vital Signs Temp 98.7 F 03/24/24 13:20 Pulse 73 03/24/24 13:20 Resp 16 03/24/24 13:20 BP 139/61 03/24/24 13:20 Pulse Ox 95 03/24/24 13:20 FiO2 Intake & Output 03/23/24 03/24/24 03/24/24 18:59 06:59 18:59 Intake Total 2820 400 Output Total 50 180 Balance 2770 220 Intake: IV 1500 Oral 1320 400 Output: Urine 180 Estimated Blood Loss 50 Other: Voiding Method Toilet # Voids 3 1 - Exam Gen: AxO, NAD Pulm: non-labored respirations Abd: soft, minimally tender around incisions. Non-distended. No guarding/rebound/rigidity Extrem: no edema seen - Labs CBC & Chem 7: 03/23/24 06:54 03/23/24 06:54 Labs: Abnormal Lab Results - Last 24 Hours (Table) 03/23/24 03/23/24 03/24/24 Range/Units 17:07 20:06 07:01 POC Glucose (mg/dL) 118 H 134 H 136 H (70-110) mg/dL 03/24/24 Range/Units 12:13 POC Glucose (mg/dL) 120 H (70-110) mg/dL Assessment and Plan Assessment: Patient is a 64-year-old male who is status post laparoscopic cholecystectomy. Postop day 1 Plan: -Diet as tolerated -IV fluid hydration -As needed pain and nausea control -Encourage ambulation -Okay to discharge once pain is adequately controlled; anticipate discharge in the next 24 hours Radames Canales M.D. General Surgery
[2024-03-24 17:11] LABS: Glucose,Whole Blood 105 mg/dL (70-110)
[2024-03-24 20:19] LABS: Glucose,Whole Blood 130 mg/dL (70-110)
[2024-03-25 07:00] LABS: Glucose,Whole Blood 117 mg/dL (70-110)
[2024-03-25 12:13] LABS: Glucose,Whole Blood 116 mg/dL (70-110)
--- NOTE | 2024-03-25 12:32 | P.PN ---
Subjective Progress Note Date: 03/25/24 Patient states he has pain. He feels unsteady on his feet. He does not wish to be discharged home today. On exam vital signs appear stable. Abdomen is soft. Status post cholecystectomy. Patient be discharged home tomorrow. Objective - Vital Signs Vital signs: Vital Signs Temp 97.9 F 03/25/24 07:01 Pulse 69 03/25/24 07:01 Resp 18 03/25/24 07:01 BP 115/62 03/25/24 07:01 Pulse Ox 94 L 03/25/24 07:01 FiO2 Intake & Output 03/24/24 03/25/24 03/25/24 18:59 06:59 18:59 Intake Total 2974 Balance 2974 Intake: Oral 2974 Other: Voiding Method Toilet Toilet # Voids 3 3 - Labs CBC & Chem 7: 03/23/24 06:54 03/23/24 06:54 Labs: Abnormal Lab Results - Last 24 Hours (Table) 03/24/24 03/25/24 03/25/24 Range/Units 20:12 06:58 12:12 POC Glucose (mg/dL) 130 H 117 H 116 H (70-110) mg/dL
[2024-03-25 17:13] LABS: Glucose,Whole Blood 67 mg/dL (70-110)
[2024-03-25 17:36] LABS: Glucose,Whole Blood 79 mg/dL (70-110)
[2024-03-25 20:12] LABS: Glucose,Whole Blood 114 mg/dL (70-110)
[2024-03-26 07:16] LABS: Glucose,Whole Blood 95 mg/dL (70-110)
[2024-03-26 07:25] VITALS: RESP 16
[2024-03-26] MEDS: DOCUSATE 100 MG CAP PO SCH (11:20)
--- NOTE | 2024-03-26 11:51 | P.DS ---
Providers Date of admission: 03/23/2024 Expected date of discharge: 03/26/24 Attending physician: Sandrita Chapa Primary care physician: Nathanael Valentin Hospital Course: POSTOPERATIVE DIAGNOSES: 1. Symptomatic gallstone 2. Right upper quadrant abdominal pain 3. Chronic cholecystitis 4. Peritoneal adhesions, right upper quadrant, severe 5. Hepatomegaly 6. Morbid obesity due to excess calories, BMI 40.7 7. Diabetes type 2, [id number] with complications 8. Atrial fibrillation with chronic anticoagulant use 9. Hypertensive heart disease 10. Diabetes type 2 with complications COURSE: The patient is a 64-year-old male who presented with symptomatic cholecystitis. Patient had extremely large gallstone over 5 to 8 cm which was resected in total with his cholecystectomy. Patient had difficulty with awakening from his anesthesia including apnea hypopnea syndrome, morbid obesity BMI over 40.7. Patient had moderate postoperative pain requiring narcotics which also depress his respiratory status. Patient was admitted. Prior to discharge, he was tolerating diet. He was alert. Pain was tolerated. Nonnarcotic pain medication for discharge from described. Close outpatient follow-up reviewed. May resume his blood thinners tomorrow 03/27/2024. Procedures: OPERATION: 1. Robotic-assisted da Luther Xi laparoscopic extensive lysis of adhesions over 1.5 hours, over 85% of the case 2. Robotic-assisted da Luther Xi laparoscopic cholecystectomy, multiport with FIREFLY ESTIMATED BLOOD LOSS: 30 mL. SPECIMENS REMOVED: Gallbladder. COMPLICATIONS: None. OPERATIVE FINDINGS: 1. Moderate scarring over entire gallbladder with peritoneal adhesions, pericholecystic with features of chronic cholecystitis 2. Large gallstone over 6 cm adding complexity of case 3. Severe adhesions causing distortion of gallbladder including spiraling of infundibulum posterior to common bile duct and cystic duct requiring additional careful dissection 4. Due to patient multiple high risk medical comorbidities, hospitalization advised Patient Condition at Discharge: Stable Plan - Discharge Summary Discharge Rx Participant: No New Discharge Prescriptions: New Simethicone [Gas-X] 125 mg PO AC-TID PRN #20 capsule PRN Reason: Pain Acetaminophen Tab [Tylenol Tab] 1,000 mg PO Q6HR PRN #30 tablet PRN Reason: Pain Cyclobenzaprine [Flexeril] 10 mg PO TID #30 tab Continue Valsartan/Hydrochlorothiazide [Valsartan-Hctz 160-12.5 mg Tab] 1 tab PO QAM Isosorbide Mononitrate ER [Imdur] 30 mg PO QAM metFORMIN HCL [Glucophage] 850 mg PO BID Atorvastatin [Lipitor] 20 mg PO HS Pioglitazone [Actos] 45 mg PO QAM Dulaglutide [Trulicity] 1.5 mg SQ FR Metoprolol Succinate (ER) [Toprol XL] 25 mg PO QAM Amiodarone [Cordarone] 200 mg PO BID amLODIPine BESYLATE 10 mg PO QAM Dapagliflozin Propanediol [Farxiga] 10 mg PO QAM Glimepiride [Amaryl] 4 mg PO QAM Furosemide [Lasix] 40 mg PO QAM Discharge Medication List Atorvastatin [Lipitor] 20 mg PO HS 07/10/20 [History] Isosorbide Mononitrate ER [Imdur] 30 mg PO QAM 07/10/20 [History] Valsartan/Hydrochlorothiazide [Valsartan-Hctz 160-12.5 mg Tab] 1 tab PO QAM 07/10/20 [History] metFORMIN HCL [Glucophage] 850 mg PO BID 07/10/20 [History] Dapagliflozin Propanediol [Farxiga] 10 mg PO QAM 04/06/23 [History] Dulaglutide [Trulicity] 1.5 mg SQ FR 04/06/23 [History] Pioglitazone [Actos] 45 mg PO QAM 04/06/23 [History] Glimepiride [Amaryl] 4 mg PO QAM 06/23/23 [History] Metoprolol Succinate (ER) [Toprol XL] 25 mg PO QAM 06/23/23 [History] Amiodarone [Cordarone] 200 mg PO BID 03/21/24 [History] Furosemide [Lasix] 40 mg PO QAM 03/21/24 [History] amLODIPine BESYLATE 10 mg PO QAM 03/21/24 [History] Acetaminophen Tab [Tylenol Tab] 1,000 mg PO Q6HR PRN #30 tablet 03/23/24 [Rx] Cyclobenzaprine [Flexeril] 10 mg PO TID #30 tab 03/23/24 [Rx] Simethicone [Gas-X] 125 mg PO AC-TID PRN #20 capsule 03/23/24 [Rx] Follow up Appointment(s)/Referral(s): Sandrita Chapa MD [STAFF PHYSICIAN] - 03/27/24 6:30 pm ([facility]. Calls you.) [facility] - 1 Week Patient Instructions/Handouts: Low Fat Diet (DC), Laparoscopic Cholecystectomy (DC), Lysis of Abdominal Adhesions (DC) Activity/Diet/Wound Care/Special Instructions: RESUME BLOOD THINNER 03/27/24 [facility] - WILL CALL YOU BETWEEN 9 am to 8 pm NO LONG DRIVES OR AIRPLANE RIDES OVER 60 MINUTES FOR THE NEXT 2 WEEKS, 04/06/24, DUE TO HIGH RISK OF PULMONARY EMBOLISM/DVTs May drive in 72 hrs, 03/26/24 Recommend low-fat diet for the next 2 days. No lifting over 10 pounds in 2 weeks until 04/06/24, May shower. No bath tub soaks for two weeks until 04/06/24, Diet as tolerated. Use Tylenol, simethicone scheduled for the next 24-48 hours for best pain relief. Use ice along incisions for today to prevent swelling. Discharge Disposition: HOME SELF-CARE
[2024-03-26 11:59] LABS: Glucose,Whole Blood 97 mg/dL (70-110)
[2024-03-26 12:38] VITALS: BP 135/66; PULSE 64; TEMP 98.1
== END 2024-03-26 13:57 | disposition home or self-care (01) ==
LOC: OR 06:30 → 5NMEDONC 06:31 → OR 03-26 13:57
PROVIDERS: ADMIT Surgery Plastic and Reconstructive Surgery; ATTEND Surgery Plastic and Reconstructive Surgery
DX: K80.10 Calculus of gallbladder with chronic cholecystitis without obstruction (principal); K66.0 Peritoneal adhesions (postprocedural) (postinfection); R16.0 Hepatomegaly, not elsewhere classified; K21.9 Gastro-esophageal reflux disease without esophagitis; E11.9 Type 2 diabetes mellitus without complications; I48.91 Unspecified atrial fibrillation; E78.5 Hyperlipidemia, unspecified; I11.9 Hypertensive heart disease without heart failure; G47.33 Obstructive sleep apnea (adult) (pediatric); E66.01 Morbid (severe) obesity due to excess calories; Z68.41 Body mass index [BMI] 40.0-44.9, adult; Z79.84 Long term (current) use of oral hypoglycemic drugs; Z79.01 Long term (current) use of anticoagulants; Z79.899 Other long term (current) drug therapy
CPT/HCPCS: 47562; S2900; 80053; 83036; 85025; 88304; 94760; 96372

== ENCOUNTER 2024-09-20 15:54 | Observation (INO) | payer MEDICARE ==
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
[2024-09-20 16:52] LABS: ALT 26 U/L (4-49); African American GFR (CKD) >90 (>60 ml/min/1.73 sqM); Albumin 4.1 g/dL (3.5-5.0); Anion Gap 11 mmol/L; Blood Urea Nitrogen 20 mg/dL (9-20); Calcium 8.8 mg/dL (8.4-10.2); Carbon Dioxide 23 mmol/L (22-30); Chloride 107 mmol/L (98-107); Glucose 73 mg/dL (74-99); Non-African American GFR(CKD) >90 (>60 ml/min/1.73 sqM); Sodium 141 mmol/L (137-145); Total Bilirubin 0.8 mg/dL (0.2-1.3); Total Protein 7.9 g/dL (6.3-8.2)
[2024-09-20 17:02] LABS: Potassium 3.7 mmol/L (3.5-5.1)
[2024-09-20 17:03] LABS: AST 33 U/L (17-59); Alkaline Phosphatase 62 U/L (38-126); Magnesium 1.9 mg/dL (1.6-2.3)
[2024-09-20 17:56] LABS: Basophils # (A) 0.05 10*3/uL (0.00-0.10); Basophils % (A) 0.7 %; Eosinophils # (A) 0.27 10*3/uL (0.04-0.35); Eosinophils % (A) 3.7 %; HGB 13.2 g/dL (13.0-17.0); Lymphocytes # (A) 1.59 10*3/uL (0.90-5.00); Lymphocytes % (A) 21.7 %; MCH 30.5 pg (27.0-32.0); MCV 92.4 fL (80.0-97.0); Mean Platelet Volume 9.3 fL (9.5-12.2); Monocytes # (A) 0.63 10*3/uL (0.20-1.00); Monocytes % (A) 8.6 %; Neutrophils # (A) 4.77 10*3/uL (1.80-7.70); Neutrophils % (A) 64.9 %; Platelet Count 261 10*3/uL (140-440); RBC 4.33 10*6/uL (4.40-5.60); RDW 13.9 % (11.5-14.5); WBC 7.34 10*3/uL (4.50-10.00)
[2024-09-20] MEDS: ASPIRIN 81 MG PO STA (18:26)
[2024-09-20 18:36] LABS: Partial Thromboplastin Time 23.9 sec (22.0-30.0); Prothrombin Time 10.9 sec (10.0-12.5)
--- NOTE | 2024-09-20 18:38 | XR ---
EXAMINATION TYPE: XR chest 2V DATE OF EXAM: 09/20/2024 6:32 PM COMPARISON: Chest radiographs from 07/10/2020 TECHNIQUE: XR chest 2V Frontal and lateral views of the chest. CLINICAL INDICATION:Male, 64 years old with history of Chest Pain; FINDINGS: Lungs/Pleura: There is no evidence of pleural effusion, focal consolidation, or pneumothorax. Pulmonary vascularity: Central pulmonary prominence redemonstrated. Heart/mediastinum: Cardiomediastinal silhouette is prominent in size. Musculoskeletal: Multiple level degenerative disc disease changes seen throughout the spine. IMPRESSION: No acute cardiopulmonary disease/process. [facility], , 09/20/2024 6:36 PM
--- NOTE | 2024-09-20 21:18 | US ---
EXAMINATION TYPE: US venous doppler duplex LE BI DATE OF EXAM: 09/20/2024 9:08 PM COMPARISON: Right lower extremity venous ultrasound 05/15/2019 CLINICAL INDICATION: Male, 64 years old with history of bilat LE swelling; patient states swelling in ankles. no hx dvt. takes thinners twice a day, Pain TECHNIQUE: The lower extremity deep venous system is examined utilizing real time linear array sonog parisa with graded compression, color doppler sonography, and spectral doppler. SIDE PERFORMED: Bilateral FINDINGS: VESSELS IMAGED: Common Femoral Vein Deep Femoral Vein Greater Saphenous Vein * Femoral Vein Popliteal Vein Small Saphenous Vein * Proximal Calf Veins (* superficial vessels) slightly limited exam due to large patient body habitus Right Leg: appears negative for dvt, Color Doppler imaging shows patency of the vessels. Spectral wa veforms are within normal limits. Left Leg: appears negative for dvt, Color Doppler imaging shows patency of the vessels. Spectral wav eforms are within normal limits. IMPRESSION: Slightly limited exam due to patient's large body habitus. No ultrasound evidence for deep venous thrombosis. [facility], , 09/20/2024 9:16 PM
[2024-09-20] MEDS: FUROSEMIDE 10 MG/ML 4 ML VIAL IV STA (22:01)
[2024-09-21] MEDS: APIXABAN 5 MG TAB PO SCH (10:28)
[2024-09-21] MEDS: FUROSEMIDE 40 MG TAB PO SCH (10:29)
[2024-09-21] MEDS: AMIODARONE 200 MG TAB PO SCH (10:29)
[2024-09-21] MEDS: amLODIPine 10 MG TAB PO SCH (10:29)
[2024-09-21] MEDS: DAPAGLIFLOZIN PROPANEDIOL 10 MG TABLET PO SCH (10:30)
[2024-09-21] MEDS: ISOSORBIDE MONONITRATE ER 30 MG TAB.ER.24H PO SCH (10:30)
[2024-09-21] MEDS: hydroCHLOROthiazide 12.5 MG CAP PO SCH (10:31)
[2024-09-21] MEDS: metFORMIN 850 MG TAB PO SCH (10:32)
[2024-09-21] MEDS: METOPROLOL SUCCINATE (ER) 25 MG TAB.ER.24H PO SCH (10:32)
[2024-09-21] MEDS: VALSARTAN 160 MG TAB PO SCH (10:33)
[2024-09-21] MEDS: PIOGLITAZONE 45 MG TAB PO SCH (10:34)
[2024-09-21 10:41] LABS: Glucose,Whole Blood 128 mg/dL (70-110)
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
[2024-09-21] MEDS: FUROSEMIDE 10 MG/ML 4 ML VIAL IV STA (14:03)
[2024-09-21] MEDS: GLIMEPIRIDE 4 MG TAB PO SCH (14:04)
[2024-09-21 15:30] LABS: Chol/HDL Ratio 2.78 Ratio; VLDL Calculation 15.06 mg/dL (5.00-40.00)
--- NOTE | 2024-09-21 16:17 | CA ---
Transthoracic Echo Report Name: Efra Farmer Age: 64 Gender: M : 1960 Exam Date: 09/21/2024 13:33 Exam Location: [facility] Ht (in): Wt (lb): Ordering Physician: Basim Ahdikari MD Attending/Referring Phys: Dermatology Technician Lacey Putnam RDCS Procedure CPT: Indications: Chest pain, history of CHF Cardiac Hx: Technical Quality: Poor, Technically difficult study Contrast 1: Total Dose (mL): Contrast 2: Total Dose (mL): MEASUREMENTS (Male / Female) Normal Values 2D ECHO LV Diastolic Diameter PLAX 5.8 cm 4.2 - 5.9 / 3.9 - 5.3 cm LV Systolic Diameter PLAX 3.2 cm IVS Diastolic Thickness 1.3 cm 0.6 - 1.0 / 0.6 - 0.9 cm LVPW Diastolic Thickness 1.2 cm 0.6 - 1.0 / 0.6 - 0.9 cm LV Relative Wall Thickness 0.4 RV Internal Dim ED PLAX 2.9 cm LA Systolic Diameter LX 3.3 cm 3.0 - 4.0 / 2.7 - 3.8 cm M-MODE Aortic Root Diameter MM 3.7 cm LA Systolic Diameter MM 3.3 cm LA Ao Ratio MM 0.9 AV Cusp Separation MM 2.4 cm DOPPLER AI Peak Velocity 194.9 cm/s AI Peak Gradient 15.2 mmHg AI Pressure Half Time 1051.3 ms MV Area PHT 2.7 cm??? Mitral E Point Velocity 59.1 cm/s Mitral A Point Velocity 72.1 cm/s Mitral E to A Ratio 0.8 MV Deceleration Time 277.8 ms TR Peak Velocity 143.7 cm/s TR Peak Gradient 8.3 mmHg FINDINGS Left Ventricle Left ventricular ejection fraction is estimated at 50-55%. Mildly increased septal wall thickness. Normal left ventricular systolic function with no obvious regional wall motion abnormalities. Left ventricular cavity size normal. Right Ventricle Moderate right ventricular dilatation. Right ventricular systolic pressure within normal limits. Generalized right ventricular hypokinesis. Right Atrium Right atrium not well visualized. Left Atrium Left atrium not well visualized. Mitral Valve Structurally normal mitral valve. Trace mitral regurgitation. No mitral stenosis. Aortic Valve Aortic valve not well visualized. No aortic stenosis. Mild aortic regurgitation. Tricuspid Valve Structurally normal tricuspid valve. Trace tricuspid regurgitation. No tricuspid stenosis. Pulmonic Valve Structurally normal pulmonic valve. No pulmonic stenosis. Trace pulmonic regurgitation. Pericardium No pericardial or pleural effusion. Aorta Aorta at upper limits of normal. CONCLUSIONS Left ventricle size and systolic function is pretty much in the normal range. Echo contrast was used. Right-sided pressures are normal. There is minimal mitral tricuspid and aortic insufficiency. No pericardial effusion Previewed by: Dr. Erika Blanton MD (Electronically Signed) Final Date: 21 Sep 2024 16:17
[2024-09-21 21:34] LABS: Glucose,Whole Blood 98 mg/dL (70-110)
[2024-09-21] MEDS: ATORVASTATIN 20 MG TAB PO SCH (21:56)
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
[2024-09-22 02:02] VITALS: RESP 17
[2024-09-22 06:14] LABS: Glucose,Whole Blood 135 mg/dL (70-110)
[2024-09-22 08:05] VITALS: BP 133/70; PULSE 64; TEMP 97.7
[2024-09-22] MEDS: ASPIRIN 81 MG PO SCH (09:32)
--- NOTE | 2024-09-22 11:29 | P.PN ---
Subjective Progress Note Date: 09/22/24 The patient was seen and evaluated this morning with he is asymptomatic beside shortness of breath which has improved. No pain in the chest. No other cardiovascular symptoms. The physical examination is remarkable for regular rhythm with a soft systolic murmur and clear breathing sounds bilaterally and mild bilateral lower EXTR edema Assessment Atypical chest discomfort which has resolved Paroxysmal atrial fibrillation Mild bilateral lower extremity edema which has improved Plan Continue the current medical regimen Continue oral anticoagulation The patient can be discharged and follow-up with Dr. Greene Consider tapering down the dose of amiodarone Objective - Vital Signs Vital signs: Vital Signs Temp 97.7 F 09/22/24 07:00 Pulse 64 09/22/24 07:00 Resp 17 09/22/24 07:00 BP 133/70 09/22/24 07:00 Pulse Ox 97 09/22/24 07:00 FiO2 Intake & Output 09/21/24 09/22/24 09/22/24 18:59 06:59 18:59 Intake Total 600 118 Output Total 1500 650 600 Balance -1500 -50 -482 Weight 160.3 kg Intake: Oral 600 118 Output: Urine 1500 650 600 Other: Voiding Method Urinal Urinal # Voids 4 - Labs CBC & Chem 7: 09/20/24 16:47 09/20/24 16:19 Labs: Abnormal Lab Results - Last 24 Hours (Table) 09/21/24 09/22/24 Range/Units 12:35 06:13 POC Glucose (mg/dL) 135 H (70-110) mg/dL HDL Cholesterol 39.90 L (40.00-60.00) mg/dL
--- NOTE | 2024-09-22 11:59 | P.DS ---
Providers Date of admission: 09/20/24 21:15 Attending physician: Jina Ortez Consults: 09/20/24 21:15 Consult Physician Routine Consulting Provider: [facility] Consult Reason/Comments: Swelling, CP, concern new CHF Do you want consulting provider notified?: Yes, Notify in am Primary care physician: Nathanael Valentin Hospital Course: Discharge Diagnosis: #Bilateral leg swelling likely multifactorial including medication side effects, morbid obesity and venous stasis #Atypical chest pain, ACS was ruled out, troponins negative #Congestive heart failure with suspected, normal NT proBNP, echocardiogram with ejection fraction of 55%, CHF ruled out #Paroxysmal A-fib, on Eliquis, in sinus rhythm #History of hypertension #Morbid obesity Hospital Course: Patient is a 64-year-old male with history of A-fib on Eliquis, type 2 diabetes mellitus, GERD, hyperlipidemia, hypertension, presents to the ER with the ER chief complaint of feeling intermittent chest pain associated with leg swelling since 2 to 3 weeks. Patient reports that his chest pain is mainly on the left side under the left rib which has been intermittent since 3 weeks with no radiation and no alleviating or aggravating factors. He rates his pain 4 out of 10 and describes it as dull and achy associated with some soreness especially when he presses hard on that area. Patient also reports upper respiratory tract infection a month ago for which she has recovered completely. Patient is also reporting worsening swelling in his legs for which he is already on furosemide 40 mg once daily. However he did take Lasix twice a day after talking to his PCP recently. However leg swelling is not improving despite being on Lasix twice a day. Patient has been evaluated a year ago with concerns for chest pain and leg swelling and did have echocardiogram which revealed ejection fraction of 55 to 60% with mild to moderate increased left ventricle wall thickness. He also had a left heart catheterization with no PCI. Patient is also endorsing orthopnea and PND however at the time of the interview is not in any active chest pain and seems to be feeling better. Initial lab work in the ED showed WBC 7.34, hemoglobin 13.2, platelet count 261, sodium 141, potassium 3.7, BUN 20, creatinine 0.83, glucose 73, troponin I less than 0.012 and repeat is < 0.012, NT proBNP 105 Chest x-ray in the ER shows mild vascular congestion with mild left pleural effusion noted. Venous Doppler ultrasound is negative for DVT in bilateral lower extremities. EKG shows normal sinus rhythm with ventricular rate of 63 bpm, W[place] interval 184 ms, QRS duration of 106 ms, QTc of 339 ms. Left axis deviation is noted. T wave inversions noted in anteroseptal leads. Cardiology was consulted. Echocardiogram showed normal LV EF of 55 to 60%. Heart failure was ruled out based on echocardiogram chest x-ray and NT proBNP. Bilateral swelling seems to be multifactorial including medication side effects. Therefore pioglitazone and amlodipine has been discontinued. Patient has been advised to follow-up with PCP and cardiology . No new medications have been added. Leg swelling is improving. Patient otherwise hemodynamically stable and medically optimized for discharge. Discharge disposition: Home Vital signs reviewed. Gen: in no apparent distress, resting comfortably in bed Eyes: PERRLA, EOMI, no scleral injection or icterus HENT: normocephalic, atraumatic, good hearing acuity, moist mucous membranes Neck: full range of motion Resp: CTAB, no rales, rhonchi, or wheezes CVS: normal S1 and S2, no murmurs, rubs or gallops, 1+ bilateral pitting edema GI: soft, NTTP, ND, no hepatosplenomegaly : no suprapubic tenderness, no CVAT, fuentes catheter [is/not] present MSK: no clubbing, no cyanosis, no noted contractures of extremities Skin: no noted rashes, petechiae; temperature of skin is appropriate Neuro: moving all extremities without signs of weakness, CN II-XII intact Psych: cooperative, euthymic mood, insight and judgment intact Dictation was produced using [employer] dictation software. Please excuse any grammatical, word or spelling errors. Attestation Attestation/ Assistant Administrator Note: Attestation to D/C Summary, Participation (I saw and evaluated the patient with the Resident, and I reviewed and discussed the patient with the Resident and agree with the Resident's findings and plans as documented above., immediately available, management reviewed and discussed), I agree with findings & plan, Provider Signature (AURELIA KERN, CHETAN Wiseman Patient Condition at Discharge: Fair Plan - Discharge Summary Discharge Rx Participant: No New Discharge Prescriptions: Continue Valsartan/Hydrochlorothiazide [Valsartan-Hctz 160-12.5 mg Tab] 1 tab PO DAILY Isosorbide Mononitrate ER [Imdur] 30 mg PO DAILY metFORMIN HCL [Glucophage] 850 mg PO BID Atorvastatin [Lipitor] 20 mg PO HS Dulaglutide [Trulicity] 1.5 mg SQ FERNANDES Metoprolol Succinate (ER) [Toprol XL] 25 mg PO DAILY Amiodarone [Cordarone] 200 mg PO DAILY Apixaban [Eliquis] 5 mg PO BID Dapagliflozin Propanediol [Farxiga] 10 mg PO DAILY Glimepiride [Amaryl] 4 mg PO W/BRKFST Furosemide [Lasix] 40 mg PO DAILY Discontinued Pioglitazone [Actos] 45 mg PO DAILY amLODIPine [Norvasc] 10 mg PO DAILY Discharge Medication List Atorvastatin [Lipitor] 20 mg PO HS 07/10/20 [History] Isosorbide Mononitrate ER [Imdur] 30 mg PO DAILY 07/10/20 [History] Valsartan/Hydrochlorothiazide [Valsartan-Hctz 160-12.5 mg Tab] 1 tab PO DAILY 07/10/20 [History] metFORMIN HCL [Glucophage] 850 mg PO BID 07/10/20 [History] Dapagliflozin Propanediol [Farxiga] 10 mg PO DAILY 04/06/23 [History] Dulaglutide [Trulicity] 1.5 mg SQ FERNANDES 04/06/23 [History] Glimepiride [Amaryl] 4 mg PO W/BRKFST 06/23/23 [History] Metoprolol Succinate (ER) [Toprol XL] 25 mg PO DAILY 06/23/23 [History] Amiodarone [Cordarone] 200 mg PO DAILY 03/21/24 [History] Furosemide [Lasix] 40 mg PO DAILY 03/21/24 [History] Apixaban [Eliquis] 5 mg PO BID 09/20/24 [History] Follow up Appointment(s)/Referral(s): Nathanael Valentin MD [Primary Care Provider] - 1-2 days Roland Hale MD [STAFF PHYSICIAN] - 1 Week Patient Instructions/Handouts: Heart Failure (DC), Leg Edema (ED) Activity/Diet/Wound Care/Special Instructions: Please follow-up with your PCP and machine cementer and folder within 1 week. Discontinuing amlodipine 10 mg once daily and pioglitazone (Actos) 45 mg p.o. daily please continue to monitor your blood pressure and blood sugar at home Keep your blood pressure less than 140/90 Discharge Disposition: HOME SELF-CARE
[2024-09-22 12:28] LABS: Glucose,Whole Blood 108 mg/dL (70-110)
[2024-09-24 09:47] LABS: Glucose,Whole Blood 120 mg/dL (70-110)
== END 2024-09-22 15:30 | disposition home or self-care (01) ==
LOC: EC 15:54 → 6NMEDSUR 21:15
PROVIDERS: ADMIT Hospitalist; ATTEND Hospitalist
DX: R07.89 Other chest pain (principal); I11.0 Hypertensive heart disease with heart failure; I50.33 Acute on chronic diastolic (congestive) heart failure; I87.8 Other specified disorders of veins; I48.0 Paroxysmal atrial fibrillation; E66.01 Morbid (severe) obesity due to excess calories; E11.9 Type 2 diabetes mellitus without complications; E78.00 Pure hypercholesterolemia, unspecified; I25.10 Atherosclerotic heart disease of native coronary artery without angina pectoris; I45.10 Unspecified right bundle-branch block; K21.9 Gastro-esophageal reflux disease without esophagitis; Z79.01 Long term (current) use of anticoagulants; Z79.84 Long term (current) use of oral hypoglycemic drugs; Z79.899 Other long term (current) drug therapy; Z79.85 Long-term (current) use of injectable non-insulin antidiabetic drugs
CPT/HCPCS: 96376; 96374; 99285; 36415; 93005 ×2; 93306; 85379; 83880; 80061; 80053; 84443; 83735; 84484; 85025; 85610; 85730; 71046; 93970; G0378 ×3; Q9957; J1938 ×2